=== PATIENT | male | born 1950 | race Caucasian/White ===

== ENCOUNTER → 2016-12-23 | Outpatient (CLI) | payer MEDICARE ==
[2014-05-22 16:00] VITALS: BP 121/79
[~2016-12-23] MED LIST: ASPI325T8 PO; CYCL10TA2 PO; GABA-587 PO; HYDR-971 PO; LOSA25TA4 PO; METF500T4 PO; METO25TA4 PO; MULT-208 PO; NITR0.4T22 SL; OMEP20CA5 PO; PRAV40TA2 PO
--- NOTE | 2016-12-23 12:24 | CARD ---
APPROVED REPORT EXAM: Two-dimensional and M-mode echocardiogram with Doppler and color Doppler. Other Information Quality : Fair INDICATION Cardiac Disease: CAD Chest Pain Murmur 2D DIMENSIONS RVDd2.8 (2.9-3.5cm)Left Atrium(2D)3.0 (1.6-4.0cm) IVSd0.9 (0.7-1.1cm)Aortic Root(2D)3.8 (2.0-3.7cm) LVDd4.3 (3.9-5.9cm)LVOT Diameter2.5 (1.8-2.4cm) PWd0.9 (0.7-1.1cm)LVDs3.0 (2.5-4.0cm) FS (%) 31.4 %SV50.8 ml LVEF(%)59.5 (>50%) Aortic Valve AoV Peak Cameron.142.1cm/sAoV VTI24.2cm AO Peak GR.8.1mmHgLVOT Peak Cameron.109.0cm/s AO Mean GR.4mmHgAVA (VMAX)3.87cm2 EVLIN (VTI)4.00cm2 Mitral Valve MV E Wvadjebe80.1cm/sMV DECEL [id number] MV A Kanefgya85.8cm/sE/A Ratio0.9 Tricuspid Valve TR P. Goewccpp620af/sRAP MEELBBUB6vxXs TR Peak Gr.69ybVxGIQI74gdJg Pulmonary Vein S1 Msboxuwf42.4cm/sD2 Iwgjzvfq66.4cm/s PVa wqbppeqx974qsmz LEFT VENTRICLE The left ventricle is normal size. There is normal left ventricular wall thickness. The left ventricu lar systolic function is normal and the ejection fraction is within normal range. The Ejection Fracti on is 55-60%. There is normal LV segmental wall motion. Transmitral Doppler flow pattern is Grade I-a bnormal relaxation pattern. RIGHT VENTRICLE The right ventricle is normal size. The right ventricular systolic function is normal. ATRIA The left atrium size is normal. The right atrium size is normal. The interatrial septum is intact wit h no evidence for an atrial septal defect or patent foramen ovale as noted on 2-D or Doppler imaging. AORTIC VALVE The aortic valve is normal in structure and function. Doppler and Color Flow revealed no significant aortic regurgitation. There is no significant aortic valvular stenosis. MITRAL VALVE The mitral valve is calcified but opens well. There is no evidence of mitral valve prolapse. There is no mitral valve stenosis. Doppler and Color-flow revealed trace mitral regurgitation. TRICUSPID VALVE The tricuspid valve is normal in structure and function. Doppler and Color Flow revealed trace tricus pid regurgitation. The PA pressure was estimated at 21 mmHg. There is no tricuspid valve stenosis. PULMONIC VALVE The pulmonary valve is normal in structure and function. Doppler and Color Flow revealed no pulmonic valvular regurgitation. There is no pulmonic valvular stenosis. GREAT VESSELS The aortic root is mildly enlarged at 3.8 cm. The ascending aorta is not well seen. The IVC is normal in size and collapses >50% with inspiration. PERICARDIAL EFFUSION There is no evidence of significant pericardial effusion. Critical Notification Critical Value: No <Conclusion> The left ventricle is normal size. The left ventricular systolic function is normal and the ejection fraction is within normal range. The Ejection Fraction is 55-60%. There is no significant aortic valvular stenosis. Doppler and Color Flow revealed no significant aortic regurgitation. Doppler and Color-flow revealed trace mitral regurgitation. Doppler and Color Flow revealed trace tricuspid regurgitation. The PA pressure was estimated at 21 mmHg. The aortic root is mildly enlarged at 3.8 cm.
--- NOTE | 2016-12-24 13:23 | RAD ---
APPROVED REPORT Test Type: Pharmacological Stress Nurse/Tech: EVERARDO Mabry Test Indications: CAD, CP Cardiac History: Hypertension, High cholesterol, Diabetes, see EMR Medications: See EMR Medical History: smoker currently, See EMR Resting ECG: SR Resting Heart Rate: 62 bpm Resting Blood Pressure: 142/87mmHg Pretest Chest Pain: No chest pain Nurse/Tech Notes S1,S2, Lungs clear uppers/diminished bases, denies SOA or CP at this time Consent: The procedure was explained to the patient in lay terms. Informed consent was witnessed. Jose eout was entered into [employer]. History and Stress Test performed by EVERARDO Mabry Pharm. Details Pharmacologic stress testing was performed using 0.4mg per 5ml of regadenoson given intravenously ove r 7-10 seconds. Stress Symptoms Slight SOA, subsided quickly. VSS. Denied CP POST EXERCISE Reason for Termination: Infusion complete Max HR: 111 bpm Max Blood Pressure: 136/82mmHg Blood Pressure response to exercise: Normal blood pressure response during stress. Heart Rate response to exercise: Normal response Chest Pain: No. Arrhythmia: No. ST Change: No. INTERPRETATION Stress EKG Conclusion: No acute changes were noted. Imaging Protocol IMAGE PROTOCOL: Rest Tc-99m/stress Tc-99m 2 days Rest: Stress: Viability: Radiopharm.Tc99m EqyukpltnGv36m Sestamibi Xufr76vHc 34mCi Duration 12min. 12min. Img Date 12/23/2016 12/24/2016 Inj-Img Wugi22ffo. 60min. STRESS DATA End Diast. Vol.90.0mlAv. Heart Rate74.0bpm End Syst. Vol.24.0mlCO Index BSA0.0L/min Myocardial Wiym748.0gEject. Gseekpjp26.0% Stress Rates Pk. Fill Rate2.89EDV/secLVtime Pk. Fill 105.85msec Pk. Empty Rate4.51ESV/secLVtime Pk. Emezv793.66msec 03/26 Pk. Fill1.95EDV/sec Stress Scores Regional WT0.00Summed WT0.00 Regional WM0.00Summed WM5.00 The rest and stress images show normal perfusion, normal contraction and thickening. LV Perf. Quant 17 Seg. SSS7.00 17 Seg. SRS11.00 17 Seg. SDS0.00 Stress Defect Extent (% LAD)0.00Rest Defect Extent (% LAD)6.30Rev. Defect Extent (% LAD)0.00 Stress Defect Extent (% LCX) 35.00Rest Defect Extent (% LCX)55.00Rev. Defect Extent (% LCX)0.00 Stress Defect Extent (% RCA)0.00Rest Defect Extent (% RCA)2.20Rev. Defect Extent (% RCA)0.00 Stress Defect Extent (% TIFFANI)8.00Rest Defect Extent (% TIFFANI)17.00Rev. Defect Extent (% TIFFANI)0.00 Other Information Quality:Average Risk Assessment: Low Risk Conclusion 1. No evidence of EKG changes with stress testing. 2. Normal perfusion at stress/rest. 3. Low risk study. 4. EF > 60%.
== END | disposition home or self-care (01) ==
LOC: ECHO 08:54
PROVIDERS: ATTEND Internal Medicine Cardiovascular Disease
DX: I25.10 Atherosclerotic heart disease of native coronary artery without angina pectoris (principal); I10 Essential (primary) hypertension; E11.9 Type 2 diabetes mellitus without complications; E78.00 Pure hypercholesterolemia, unspecified; R01.1 Cardiac murmur, unspecified; Z79.01 Long term (current) use of anticoagulants
CPT/HCPCS: 78452; 93306; 96374; 96375; A9500

== ENCOUNTER → 2016-12-24 | Outpatient (CLI) | payer MEDICARE ==
[2014-05-22 16:00] VITALS: BP 121/79
[~2016-12-24] MED LIST changes: +RANO500T2 PO; +REGADENOSON 0.4 MG/5 ML DISP.SYRIN. IV ONE
== END | disposition home or self-care (01) ==
LOC: NM 13:08
PROVIDERS: ATTEND Internal Medicine Cardiovascular Disease
DX: R07.9 Chest pain, unspecified (principal); I10 Essential (primary) hypertension; E78.00 Pure hypercholesterolemia, unspecified; E11.9 Type 2 diabetes mellitus without complications; I25.10 Atherosclerotic heart disease of native coronary artery without angina pectoris; Z90.49 Acquired absence of other specified parts of digestive tract
CPT/HCPCS: 93017; 96376; J2785

== ENCOUNTER 2017-01-03 06:19 | Outpatient (CLI) | payer MEDICARE ==
[2017-01-03] VITALS (10 sets, daily range): BP systolic 90–129; BP diastolic 60–80
[~2017-01-03] VITALS: Ht 172.7 cm; Wt 120.7 kg
[~2017-01-03 06:19] MED LIST changes: -RANO500T2 PO; -REGADENOSON 0.4 MG/5 ML DISP.SYRIN. IV ONE
[2017-01-03] MEDS ORDERED: RANO500T2 PO (06:52)
[2017-01-03 06:54] LABS: HEMATOCRIT 50.8 % (39.0-53.0); HEMOGLOBIN 17.1 g/dL (13.0-17.5); RED BLOOD COUNT 5.49 x10^6/uL (4.30-5.70); RED CELL DISTRIBUTION WIDTH 14.1 % (11.5-14.5); WHITE BLOOD COUNT 11.9 x10^3/uL (4.0-11.0)
[2017-01-03] MEDS ORDERED: IODIXANOL 320 MG/ML 100 ML VIAL. ONE (07:09)
[2017-01-03] MEDS ORDERED: HEPARIN for ARTERIAL LINE 1,500 ML ONE (07:10)
[2017-01-03] MEDS ORDERED: LIDOCAINE 2% 20 ML VIAL. ONE (07:10)
[2017-01-03 07:14] LABS: CALCIUM 9.3 mg/dL (8.5-10.1); CREATININE 1.1 mg/dL (0.7-1.3); GFR 66.6; POTASSIUM 4.4 mmol/L (3.5-5.1)
[2017-01-03] MEDS ORDERED: fentaNYL PF VIAL 100 MCG/2 ML VIAL IV ONE ×2 (08:00→09:45)
[2017-01-03] MEDS ORDERED: IODIXANOL 320 MG/ML 100 ML VIAL. IART ONE (08:00)
[2017-01-03] MEDS ORDERED: MIDAZOLAM HCL/PF 2 MG/2 ML VIAL. IV ONE ×2 (08:00→09:45)
[2017-01-03] MEDS ORDERED: LIDOCAINE 2% 20 ML VIAL. IJ ONE (08:00)
[2017-01-03] MEDS ORDERED: HEPARIN for IV BOLUS 10,000 UNIT/10 ML VIAL. ONE (08:05)
[2017-01-03] MEDS ORDERED: MIDAZOLAM HCL/PF 2 MG/2 ML VIAL. ONE ×2 (08:05→08:41)
[2017-01-03] MEDS ORDERED: fentaNYL PF VIAL 100 MCG/2 ML VIAL ONE (08:05)
[2017-01-03] MEDS ORDERED: IV NORMAL SALINE 1000ML BAG 1,000 ML IV SCH (09:41)
[2017-01-03] MEDS ORDERED: BISACODYL 10 MG SUPP.RECT. PR PRN (09:45)
[2017-01-03] MEDS ORDERED: 0.9 % SODIUM CHLORIDE 10 ML DISP.SYRIN. IV PRN (09:45)
[2017-01-03] MEDS ORDERED: MAGNESIUM HYDROXIDE 2,400 MG/30 ML ORAL.SUSP. PO PRN (09:45)
[2017-01-03] MEDS ORDERED: oxyCODONE/APAP 5/325 1 TAB TABLET PO PRN ×2 (09:45)
[2017-01-03] MEDS ORDERED: ATROPINE 0.5 MG/5 ML DISP.SYRIN. IV PRN (09:45)
[2017-01-03] MEDS ORDERED: fentaNYL PF VIAL 100 MCG/2 ML VIAL IV PRN (09:45)
[2017-01-03] MEDS ORDERED: LACTULOSE 20 GM/30 ML SOLUTION. PO PRN (09:45)
[2017-01-03] MEDS ORDERED: NITROGLYCERIN SUBLINGUAL 0.4 MG BOTTLE OF 25. SL PRN (09:45)
[2017-01-03] MEDS ORDERED: ACETAMINOPHEN 325 MG TABLET. PO PRN (09:45)
--- NOTE | 2017-01-07 16:31 | CARD ---
APPROVED REPORT Procedures Abdominal aortic injection with iliofemoral runoff. Bilateral lower extremity examination The patient is a 66-year-old female who reports increasing episodes of lower extremity pain with exer tion. Noninvasive studies suggested moderate to severe lower extremity arterial disease. Angiogram wa s recommended. Risks and benefits discussed. The patient agreed to the procedure. After informed consent was obtained the patient was brought to the heart catheterization lab. The are a of the right femoral artery was prepared usual manner with Betadine, sterile draping and local anes thetic. An 18-gauge needle was used to enter the rightcommon femoral artery, a wire placed and a baxter th placed over the wire. A pigtail catheter was placed just superior to the takeoff of the renal art eries. An injection with runoff was performed. A crossover catheter was then used to engage the left iliac artery and an ejection was performed. This catheter was then removed and a additional injection was performed through the sheath. The sheath then was removed and the puncture site sealed with an A ngio-Seal product. The patient was moved to the holding area in stable condition. Findings. The abdominal aorta showed no evidence of significant disease. Bilateral renal artery showed no significant disease. The left iliac had a 20% lesion and an area of angulation. The right iliac iliac artery showed no lesions. The left femoral arterial system showed no lesions. Distally the vessels had no lesions and had leonid l three-vessel distal run off. The right superficial femoral artery had a 20% lesion. Distally the right system had no lesions and had normal three-vessel runoff. <Conclusion> Mild peripheral arterial disease with 20% lesions in the left iliac and right superficial femoral art eries.
== END 2017-01-03 12:45 | disposition home or self-care (01) ==
LOC: CCL 06:19
PROVIDERS: ATTEND Internal Medicine Cardiovascular Disease
DX: I70.212 Atherosclerosis of native arteries of extremities with intermittent claudication, left leg (principal); E78.00 Pure hypercholesterolemia, unspecified; I10 Essential (primary) hypertension; E66.9 Obesity, unspecified; Z68.41 Body mass index [BMI] 40.0-44.9, adult; M19.91 Primary osteoarthritis, unspecified site; E11.9 Type 2 diabetes mellitus without complications; F17.200 Nicotine dependence, unspecified, uncomplicated; Z72.0 Tobacco use; Z87.39 Personal history of other diseases of the musculoskeletal system and connective tissue; Z90.49 Acquired absence of other specified parts of digestive tract; Z86.39 Personal history of other endocrine, nutritional and metabolic disease; Z72.89 Other problems related to lifestyle; Z91.048 Other nonmedicinal substance allergy status
CPT/HCPCS: 36415; 75630; 80048; 85027; 85610; C1769; C1892; G0269; J1644; J2250; J3010; Q9967; 99152; 99153; J2001

== ENCOUNTER → 2017-02-10 | Outpatient (CLI) | payer MEDICARE ==
[2017-01-11 19:30] VITALS: BP 138/73
[~2017-02-10] MED LIST changes: +RANO500T2 PO
--- NOTE | 2017-02-10 10:23 | RAD ---
APPROVED REPORT Patient Location : OUT-PATIENT Indications Lower Extremity Pain : Bilateral Past History Diabetes Medications Patient cannot remember name of meds but believes he is on a blood thinner Findings Rt and Lt GSV and SSV were evaluated for reflux with valsalva and proximal compression. No reflux wa s seen. No varicosities were seen. Normal size vessels. The right great saphenous vein measures 6.8 mm. The left great saphenous vein measures 5.7 mm Critical Notification Critical Value: No <Conclusion> Negative for reflux in the bilateral greater and small saphenous veins
== END | disposition home or self-care (01) ==
LOC: US 08:34
PROVIDERS: ATTEND Internal Medicine Cardiovascular Disease
DX: I73.9 Peripheral vascular disease, unspecified (principal); M79.604 Pain in right leg; M79.605 Pain in left leg; E11.9 Type 2 diabetes mellitus without complications
CPT/HCPCS: 93970

== ENCOUNTER 2017-08-17 02:21 | Emergency (ER) | payer MEDICARE | END 2017-08-17 04:21 | disposition home or self-care (01) | LOC: ER 02:21 | DX: S80.01XA Contusion of right knee, initial encounter (principal); E78.00 Pure hypercholesterolemia, unspecified; I11.9 Hypertensive heart disease without heart failure; I25.2 Old myocardial infarction; E11.9 Type 2 diabetes mellitus without complications; S91.209A Unspecified open wound of unspecified toe(s) with damage to nail, initial encounter; W06.XXXA Fall from bed, initial encounter; Y93.89 Activity, other specified; Y99.8 Other external cause status; Y92.89 Other specified places as the place of occurrence of the external cause | CPT/HCPCS: 73562; 99284 ==

== ENCOUNTER 2017-12-14 10:40 | Emergency (ER) | payer MEDICARE ==
[~2017-12-14] VITALS: Ht 172.7 cm; Wt 122.9 kg
[~2017-12-14 10:40] MED LIST changes: +ACET-704 PO; +ASPI-630 PO; +CEPH-264 PO; +CILO100T PO; -LOSA25TA4 PO; +LOSA25TA5 PO; +METF500T16 PO; -METF500T4 PO; +OMEG1CAP27 PO; +PREG150C PO; +VENL37.56 PO
[2017-12-14 10:56] VITALS: BP 131/73
[2017-12-14] MEDS ORDERED: NAPROXEN 250 MG TABLET PO STA (10:56)
[2017-12-14] MEDS ORDERED: CYCLOBENZAPRINE 10 MG TABLET. PO ONE (11:00)
[2017-12-14] MEDS ORDERED: HYDROcodone/APAP 5/325MG 1 TAB TABLET PO ONE (11:00)
--- NOTE | 2017-12-14 11:51 | RAD ---
Lumbar spine 3 views. HISTORY: Low back pain radiating down legs 3 views were taken of the lumbar spine. Spine is in normal alignment. Disc spaces are normal in height. A fracture is not identified. IMPRESSION: 1. Negative lumbar spine. Electronically signed by: Avelino Patino MD (12/14/2017 11:48 AM) [facility]
--- NOTE | 2017-12-14 11:53 | RAD ---
Left hip 2 views with one view pelvis. HISTORY: Left hip pain, lower back pain radiating down legs AP and lateral views were taken of the left hip. There is no fracture or osseous abnormality. Single view was taken of the pelvis. There is no pelvic fracture or acute osseous abnormality. IMPRESSION: 1. Negative pelvis. 2. Negative left hip. Electronically signed by: Avelino Patino MD (12/14/2017 11:49 AM) [facility]
[2017-12-14] MEDS ORDERED: HYDR-971 PO (12:28)
[2017-12-14] MEDS ORDERED: CYCL10TA2 PO (12:28)
[2017-12-14] MEDS ORDERED: DICL100G18 TP (12:28)
--- NOTE | 2017-12-14 12:29 | PHYS DOC ---
Past Medical History Past Medical History: Diabetes-Type II, High Cholesterol, Heart Disease, Hypertension Additional Past Medical Histor: PA 8 YEARS AGO. FOLLWED WITH MCSWEYN, NEUROPATHY Past Surgical History: Appendectomy, Cholecystectomy, Other Additional Past Surgical Histo: hernia Alcohol Use: Sober Drug Use: None Adult General Chief Complaint Chief Complaint: HIP PAIN HPI HPI Patient is a 67 year old male with history of smoking, diabetes, hypertension, high cholesterol, who presents today complaining of a sharp 7 out of 10 pain that begins from the left low back into the left hip and radiates to the left lower extremity that began 3 days ago when he was sitting on his couch watching TV. Patient states his pain is worse on weight bearing. Patient states he has tried dvhg-wee-quitshc pain relievers with no relief. Patient denies any trauma. Denies any loss of bowel bladder function. Patient denies any generalized weakness. PCP Dr. Garza Review of Systems Review of Systems Constitutional: Denies fever or chills [] Eyes: Denies change in visual acuity, redness, or eye pain [] HENT: Denies nasal congestion or sore throat [] Respiratory: Denies cough or shortness of breath [] Cardiovascular: No additional information not addressed in HPI [] GI: Denies abdominal pain, nausea, vomiting, bloody stools or diarrhea [] : Denies dysuria or hematuria [] Musculoskeletal: Reports left low back pain, left lateral hip pain, radiating to the left lower extremity. Integument: Denies rash or skin lesions [] Neurologic: Denies headache, focal weakness or sensory changes [] All other systems were reviewed and found to be within normal limits, except as documented in this note. Current Medications Current Medications Current Medications Medications (Trade) Dose Ordered Sig/Alen Start Time Stop Time Status Last Admin Dose Admin Acetaminophen/ Hydrocodone Bitart (Lortab 5/325) 1 tab 1X ONCE 12/14/17 11:00 12/14/17 11:01 DC 12/14/17 11:40 1 TAB Cyclobenzaprine HCl (Flexeril) 10 mg 1X ONCE 12/14/17 11:00 12/14/17 11:01 DC 12/14/17 11:40 10 MG Naproxen (Naprosyn) 250 mg 1X STAT 12/14/17 10:56 12/14/17 10:59 DC 12/14/17 11:40 250 MG Allergies Allergies Allergies Coded Allergies Type Severity Reaction Last Updated Verified venom-honey bee Allergy Intermediate Swelling 12/24/13 Yes Physical Exam Physical Exam Constitutional: Well developed, well nourished, no acute distress, non-toxic appearance. [] HENT: Normocephalic, atraumatic, bilateral external ears normal, oropharynx moist, no oral exudates, nose normal. [] Eyes: PERRLA, EOMI, conjunctiva normal, no discharge. [] Neck: Normal range of motion, no tenderness, supple, no stridor. [] Cardiovascular:Heart rate regular rhythm, no murmur [] Lungs & Thorax: Bilateral breath sounds clear to auscultation [] Abdomen: Rounded abdomen. Bowel sounds normal, soft, no tenderness, no masses, no pulsatile masses. [] Skin: Warm, dry, no erythema, no rash. [] Back: Mild tenderness on palpation of the left SI joint, no midline lumbar spine tenderness, no CVA tenderness. Positive left leg straight raises. Extremities: Slight tenderness on palpation of the left lateral hip, no cyanosis , no clubbing, ROM intact, no edema. [] Neurologic: Alert and oriented X 3, normal motor function, normal sensory function, no focal deficits noted. [] Psychologic: Affect normal, judgement normal, mood normal. [] Current Patient Data Vital Signs Vital Signs Date Time Temp Pulse Resp B/P (MAP) Pulse Ox O2 Delivery O2 Flow Rate FiO2 12/14/17 11:40 16 98 12/14/17 10:56 98.3 79 131/73 (92) Room Air 98.3 EKG EKG [] Radiology/Procedures Radiology/Procedures []PROCEDURE: LUMBAR SPINE 2-3V Lumbar spine 3 views. HISTORY: Low back pain radiating down legs 3 views were taken of the lumbar spine. Spine is in normal alignment. Disc spaces are normal in height. A fracture is not identified. IMPRESSION: 1. Negative lumbar spine. Electronically signed by: Avelino Patino MD (12/14/2017 11:48 AM) [facility] DICTATED and SIGNED BY: AVELINO PATINO MD DATE: 12/14/17 1144 PROCEDURE: HIP LEFT 2V WITH PELVIS Left hip 2 views with one view pelvis. HISTORY: Left hip pain, lower back pain radiating down legs AP and lateral views were taken of the left hip. There is no fracture or osseous abnormality. Single view was taken of the pelvis. There is no pelvic fracture or acute osseous abnormality. IMPRESSION: 1. Negative pelvis. 2. Negative left hip. Electronically signed by: Avelino Patino MD (12/14/2017 11:49 AM) [facility] DICTATED and SIGNED BY: AVELINO PATINO MD DATE: 12/14/17 1148 Course & Med Decision Making Course & Med Decision Making Pertinent Labs and Imaging studies reviewed. (See chart for details) This is a 67-year-old male patient presented to the ED today with left low back pain radiating to the left hip into the left lower extremity, no known injury. Lumbar spine x-rays as well as left hip x-rays with pelvic interpreted by radiologist are negative for any acute findings. Patient has history of smoking , he was encouraged to consider smoking cessation. He has no cauda equina syndrome symptoms. Does not have weakness. Will be discharged with pain medicine as well as muscle relaxers. He follows up with Dr. Garza. Instructed patient to call the PCP tomorrow and set up a follow-up appointment. Also given a pain clinic doctor for follow-up. jonathan saini was working in the ED at the time of this visit. i was available for consulation at all times in the ED, i was not directly involved in the care of this patient. Dragon Disclaimer Dragon Disclaimer This electronic medical record was generated, in whole or in part, using a voice recognition dictation system. Departure Departure Impression: Primary Impression: Sciatica of left side Additional Impressions: Pain in left hip Smoking addiction Disposition: 01 HOME, SELF-CARE Condition: STABLE Referrals: THEODORE MERINO MD (PCP) follow up in the course of this week GUSTAVO KAISER MD call his office and follow up in the course of this week Patient Instructions: Hip Pain, Sciatica, Jied-fb-Rogg, Smoking Cessation, Smoking Cessation, Tips For Success Additional Instructions: You were evaluated in the emergency room for pain. Take the pain medications prescribed as needed. Contact your primary care doctor tomorrow and set up a follow-up appointment as an outpatient. Your x-rays of the lumbar spine and left hip with pelvic were negative for any acute findings. Apply ice to the affected areas. You can also apply heat to the affected area. Please consider smoking cessation. Scripts Diclofenac Sodium (VOLTAREN) 100 Gm Gel..gram. 1 GM TP QID, #100 GM 2 Refills Prov: BEL MULLEN APRN 12/14/17 Hydrocodone/Apap 5-325 (NORCO 5-325 TABLET) 1 Each Tablet 1 TAB PO Q4-6HRS PRN for PAIN, #12 TAB Prov: BEL MULLEN APRN 12/14/17 Cyclobenzaprine Hcl (CYCLOBENZAPRINE HCL) 10 Mg Tablet 1 TAB PO TID, #30 TAB Prov: BEL MULLEN APRN 12/14/17 Problem Qualifiers BEL MULLEN APRN Dec 14, 2017 12:29 SHARMAINE BABIN MD Dec 14, 2017 16:44
== END 2017-12-14 12:46 | disposition home or self-care (01) ==
LOC: ER 10:40
DX: M54.42 Lumbago with sciatica, left side (principal); M25.552 Pain in left hip; F17.200 Nicotine dependence, unspecified, uncomplicated; E78.00 Pure hypercholesterolemia, unspecified; I11.9 Hypertensive heart disease without heart failure; I25.2 Old myocardial infarction; E11.40 Type 2 diabetes mellitus with diabetic neuropathy, unspecified; Z91.030 Bee allergy status
CPT/HCPCS: 72100; 73502; 99284

== ENCOUNTER → 2017-12-31 | Day surgery (SDC) | payer MEDICARE ==
[~2017-12-31] MED LIST changes: +DICL100G18 TP; +GLIP2.5T4 PO; +IV RINGERS,LACTATED 1000ML 1,000 ML IV SCH; +LIDOCAINE 1% PF 2 ML VIAL. ID PRN; +MIDAZOLAM HCL/PF 2 MG/2 ML VIAL. IV PRN; +PANT20TA2 PO; +PROPOFOL 40 ML IV ONE; +fentaNYL PF VIAL 100 MCG/2 ML VIAL IV PRN
[2017-12-31 08:45] VITALS: BP 116/76
--- NOTE | 2018-01-01 16:09 | PATHOLOGY ---
[facility] Accession Number: [id number] . 01 Material submitted: . SIGMOID POLYPECTOMY . 01 Clinical history: . Screening, Hx polyps . 02 Diagnosis: Colon biopsies, sigmoid polypectomy: - Tubular adenoma. [facility]/01/01/2018 . 02 Comment: There is no high-grade dysplasia or evidence of malignancy. (JPM:[facility] 01/01/2018) . 02 Electronically signed: . Carlito Velásquez MD, Pathologist NPI- [id number] . 01 Gross description: . Received in formalin labeled "Isma, Deon, sigmoid polyp," and additionally labeled on the requisition as "polypectomy," are multiple segments of nichols soft tissue admixed with vegetative material measuring 1.6 x 0.6 x 0.3 cm in aggregate dimensions. The specimen is filtered and entirely submitted in cassette A1. (TSD; 12/31/2017) TOB/TOB . 02 Pathologist provided ICD-10: D12.5 . 02 CPT . 655413 Specimen Comment: A courtesy copy of this report has been sent to Specimen Comment: [phone], . Specimen Comment: Report sent to / DR MERINO Specimen Comment: A duplicate report has been generated due to demographic updates. Performed at: 01 [facility] [address], [place] [id number] MD Misael Molina MD Phone: [phone] Performed at: 02 [facility] [address] [place], [place] [id number] MD Carlito Velásquez MD Phone: [phone]
== END | disposition home or self-care (01) ==
LOC: ENDOS 07:07
PROVIDERS: ATTEND Internal Medicine Gastroenterology
DX: Z12.11 Encounter for screening for malignant neoplasm of colon (principal); D12.5 Benign neoplasm of sigmoid colon; K64.0 First degree hemorrhoids; M19.90 Unspecified osteoarthritis, unspecified site; E11.9 Type 2 diabetes mellitus without complications; K21.9 Gastro-esophageal reflux disease without esophagitis; E78.00 Pure hypercholesterolemia, unspecified; E03.9 Hypothyroidism, unspecified; I11.9 Hypertensive heart disease without heart failure; Z83.3 Family history of diabetes mellitus; Z80.0 Family history of malignant neoplasm of digestive organs; Z79.899 Other long term (current) drug therapy; Z98.52 Vasectomy status; Z90.49 Acquired absence of other specified parts of digestive tract; Z98.890 Other specified postprocedural states; Z91.030 Bee allergy status; Z79.84 Long term (current) use of oral hypoglycemic drugs; Z82.49 Family history of ischemic heart disease and other diseases of the circulatory system
CPT/HCPCS: 45385; 88305; J2704; 45380

== ENCOUNTER → 2018-01-07 | Outpatient (CLI) | payer MEDICARE ==
[2017-12-31 08:45] VITALS: BP 116/76
[~2018-01-07] MED LIST changes: +BARIUM SULFATE 96% 397 GM ENEMA. PR ONE; -IV RINGERS,LACTATED 1000ML 1,000 ML IV SCH; -LIDOCAINE 1% PF 2 ML VIAL. ID PRN; -MIDAZOLAM HCL/PF 2 MG/2 ML VIAL. IV PRN; -PROPOFOL 40 ML IV ONE; -fentaNYL PF VIAL 100 MCG/2 ML VIAL IV PRN
--- NOTE | 2018-01-07 09:44 | RAD ---
Clinical indications: Screening study. Incomplete colonoscopy one week ago. Procedure: A preliminary KUB was performed. Subsequently, a barium enema catheter was inserted into the rectum and the balloon insufflated. Thin liquid barium was infused into the colon up to the cecum under fluoroscopic observation. Multiple fluoroscopic spot views were performed with manual compression of the colon. Multiple overhead computerized radiographs were performed as well. The patient tolerated the procedure well without complication. Total fluoroscopic time: 2.5 minutes. Total fluoroscopic spot images: 32. Findings: No obstructive bowel pattern is seen on the preliminary film. No filling defects are seen. No apple core lesion is seen. Mucosal pattern is unremarkable. No stricture is seen. No diverticula are seen. No extravasation of contrast is seen. Retrograde opacification of the terminal ileum is seen. Impression: Unremarkable barium enema examination. Electronically signed by: Romero Lau MD (01/07/2018 9:40 AM) [facility]
== END | disposition home or self-care (01) ==
LOC: RAD 07:43
PROVIDERS: ATTEND Internal Medicine Gastroenterology
DX: Z12.11 Encounter for screening for malignant neoplasm of colon (principal); Z86.010 Personal history of colon polyps
CPT/HCPCS: 74270

== ENCOUNTER → 2018-01-21 | Outpatient (CLI) | payer MEDICARE ==
[2017-12-31 08:45] VITALS: BP 116/76
[~2018-01-21] MED LIST changes: -BARIUM SULFATE 96% 397 GM ENEMA. PR ONE
--- NOTE | 2018-01-21 11:28 | KCIC ---
MRI Lumbar Spine without contrast History: Low back pain, left radiculopathy, left leg pain for 3 weeks, numbness Technique: Multiplanar, multi sequential noncontrast MR imaging was performed of the lumbar spine. Contrast: None Comparison: January 20, 2013 Findings: Lumbar vertebral body stature is maintained. There is again minimal grade 1 anterior spondylolisthesis L2-3, now negligible anterior spondylolisthesis L4-5. There is mild degenerative disc disease L2-3 through L4-5, slightly greater at L2-3 in the interval. There is again large hemangioma of L3 vertebral body eccentric to the left. Conus terminates at T12-L1. L1-L2: Spinal canal and neural foramina are adequate. L2-L3: There is again htca-gn-mgtsakwf facet degenerative change and mild buckling of the ligament flavum. There is mild partial uncovering of the posterior aspect of the disc due to spondylolisthesis also minimal disc osteophyte complex. There is left posterior annular tear. Spinal canal is overall adequate. There is mild narrowing of the inferior left neural foramen, disc osteophyte complex near the undersurface exiting left L2 nerve root in the distal neural foramen and proximal left parietal region as seen previously without significant displacement. Right neural foramen is adequate. L3-L4: There is mild buckling of the ligamentum flavum. There is negligible disc osteophyte complex and bulge. Spinal canal is adequate. There is somewhat increased tkrb-af-bbxbpxhv narrowing of the inferior distal left neural foramen, disc osteophyte complex and protrusion in the distal left neural foramen and proximal extraforaminal region with contact of the undersurface exiting left L3 nerve root in the extraforaminal region greater than previously. Protrusion is estimated about 5 mm AP by 7 mm CC by about 7 mm transverse. There is minimal narrowing of the inferior distal right neural foramen by minimal disc osteophyte complex. L4-L5: Spinal canal is adequate. There is minimal facet degenerative change and buckling of the ligamentum flavum. Neural foramina are overall adequate. L5-S1: Spinal canal and neural foramina are adequate. Impression: 1. Compared with the 2013 exam, there is more prominent protrusion in the inferior distal left L3-4 neural foramen and proximal extraforaminal region with contact of the undersurface exiting left L3 nerve root in the distal neural foramen and proximal extraforaminal region. There is again mild narrowing of the inferior left L2-3 neural foramen by disc osteophyte complex. 2. There is minimal grade 1 anterior spondylolisthesis at L2-3, negligible anterior spondylolisthesis at L4-5. There is multilevel facet degenerative change. 3. There is mild degenerative disc disease L2-3 through L4-5. 4. There is no new significant lumbar spinal stenosis. Electronically signed by: Alfred Rueda MD (01/21/2018 11:25 AM) [facility]
== END | disposition home or self-care (01) ==
LOC: KCIC MRI 09:51
PROVIDERS: ATTEND Family Medicine
DX: M51.36 Other intervertebral disc degeneration, lumbar region (principal); M43.16 Spondylolisthesis, lumbar region; M25.78 Osteophyte, vertebrae; M48.061 Spinal stenosis, lumbar region without neurogenic claudication; M51.26 Other intervertebral disc displacement, lumbar region; D18.09 Hemangioma of other sites
CPT/HCPCS: 72148

== ENCOUNTER → 2018-03-23 | Outpatient (CLI) | payer MEDICARE ==
[2017-12-31 08:45] VITALS: BP 116/76
[~2018-03-23] MED LIST changes: +DOCU-109 PO; -GABA-587 PO; +GABA-689 PO; +HYDR-2765 PO; +HYDR-3164 PO; -HYDR-971 PO; +LEVO75TA5 PO; -LOSA25TA5 PO; +LOSA25TA54 PO; +METH-38 PO
[2018-03-23 12:20] LABS: BASO # 0.1 x10^3/uL (0.0-0.2); BASO % 1 % (0-3); EOS # 0.3 x10^3/uL (0.0-0.7); EOS % 3 % (0-3); HEMATOCRIT 46.3 % (39.0-53.0); LYMPH # 4.9 x10^3/uL (1.0-4.8); LYMPH % 47 % (24-48); MEAN CORPUSCULAR HEMOGLOBIN 32 pg (25-35); MEAN CORPUSCULAR HGB CONC 35 g/dL (31-37); MEAN CORPUSCULAR VOLUME 93 fL (79-100); MONO # 0.9 x10^3/uL (0.0-1.1); MONO % 9 % (0-9); NEUT # 4.3 x10^3uL (1.8-7.7); NEUT % 41 % (31-73); PLATELET COUNT 278 x10^3/uL (140-400); RED CELL DISTRIBUTION WIDTH 13.8 % (11.5-14.5); WHITE BLOOD COUNT 10.5 x10^3/uL (4.0-11.0)
[2018-03-23 12:37] LABS: ALBUMIN 3.6 g/dL (3.4-5.0); ALBUMIN/GLOBULIN RATIO 1.1 (1.0-1.7); CALCIUM 9.4 mg/dL (8.5-10.1); CREATININE 0.9 mg/dL (0.7-1.3); GFR 83.7; POTASSIUM 4.1 mmol/L (3.5-5.1); TOTAL BILIRUBIN 0.3 mg/dL (0.2-1.0); TOTAL PROTEIN 6.9 g/dL (6.4-8.2)
[2018-03-23 23:10] LABS: HEMOGLOBIN A1C 7.1 % (4.8-5.6)
== END | disposition home or self-care (01) ==
LOC: SURGPAT 11:27
PROVIDERS: ATTEND Neurological Surgery
DX: Z01.818 Encounter for other preprocedural examination (principal); M51.16 Intervertebral disc disorders with radiculopathy, lumbar region; E11.9 Type 2 diabetes mellitus without complications
CPT/HCPCS: 36415; 80053; 83036; 85025; 87641

== ENCOUNTER → 2018-03-30 | Day surgery (SDC) | payer MEDICARE ==
--- NOTE | 2018-03-27 11:19 | PREOP HP ---
DATE OF SERVICE: 03/30/2018. DATE OF SURGERY: 03/30/2018. HISTORY OF PRESENT ILLNESS: The patient is a pleasant 67-year-old who is having difficulty with low back pain on the left side and pain which radiates into his left buttock and then into the left anterior thigh and left hip. He feels weakness in his left leg. If he walks any distance, he feels as though his left leg may give out. Standing markedly increases pain. He has reasonable relief with sitting. He said he has not been able to stand long enough to make a cup of coffee, but must sit down because of the development of severe left anterior thigh pain. He notes numbness in the left leg below the knee anteriorly. There is no problem on the right side. The problem started about 2 months ago. PAST MEDICAL HISTORY: Arthritis, heart attack or failure, hypertension, thyroid disease, hernia, diabetes. PAST SURGICAL HISTORY: Multiple hernia surgeries in 1979 and 2014, skin graft x 2 in 2014. FAMILY HISTORY: Cancer, diabetes, hypertension, heart problem/disease. SOCIAL HISTORY: Retired. . Rarely exercises. Denies substance abuse. Smokes 1 pack per day and has for 40 years. Denies alcohol consumption. Drinks coffee and soda daily. ALLERGIES: No known drug allergies. CURRENT MEDICATIONS: Levothyroxine, glipizide, metoprolol, losartan, pantoprazole, metformin, pravastatin, [place]. REVIEW OF SYSTEMS: A 12-point review of systems was obtained and is noncontributory except for that mentioned above. PHYSICAL EXAMINATION: NEUROSURGERY EXAMINATION: GENERAL APPEARANCE: Alert, pleasant, no acute distress. HEAD: Normocephalic and atraumatic. SKIN: Warm and dry. MUSCULOSKELETAL: Lumbar paraspinal muscle bulk is normal, restricted range of motion of lumbar spine, [id number] tenderness of lower lumbar spine with palpation, normal range of motion of the lower extremities bilaterally. EXTREMITIES: No clubbing, cyanosis or edema. NEUROLOGIC: Alert and oriented x 3, normal recent and remote memory. Strength 5/5 in bilateral lower extremities except for 4+/5, below left quadriceps. Sensory was intact to light touch in the bilateral lower extremities except for decreased sensation over the left knee and anterior leg. Reflexes were trace and symmetric in the lower extremities bilaterally. Negative straight leg raising bilaterally, positive femoral stretch test on the left. Antalgic gait. IMAGING: I reviewed a lumbar MRI scan from 01/21/2018, on that study at L3-L4, there is a foraminal disc herniation which does contact the left L3 nerve root. ASSESSMENT: Intervertebral disc disorders with radiculopathy, lumbar region. PLAN: I believe the primary problem is a foraminal disc herniation along with compression of the left L3 root and left lumbar radiculopathy. He has had chiropractic treatment without benefit. My recommendation is that he undergo lumbar microsurgery. His pain is severe, and he is unable to ambulate, but short distances. The problem has been present for 2 months and has not improved despite rest. I did outline the treatment options, which include epidural steroid injections and physical therapy, but he is not interested in proceeding with that. He would like to go ahead with the surgery. We will make the arrangements. GERARDO BRONSON MD DR: JESUS/joe JOB#: [id number] / [id number] ANNAMARIE
[~2018-03-30] VITALS: Ht 172.7 cm; Wt 126.1 kg
[~2018-03-30] MED LIST changes: +BACITRACIN 50,000 UNIT in IV NORMAL SALINE 1000ML BAG 1,000 ML IRR ONE; +BUPIVAC MPF-EPI 0.5%-1:200000 30 ML VIAL. ONE; +DESFLURANE > 120 MINUTES IH ONE; +DEXAMETHASONE SOD PHOS 20 MG/5 ML VIAL. ONE; +GELATIN SPONGE SIZE 100. ONE; +GLYCOPYRROLATE 1 MG/5 ML VIAL. ONE; +HYDROcodone/APAP 7.5/325MG 1 TAB TABLET PO ONE; +HYDROmorphone 2 MG/ML VIAL IV PRN; +KETOROLAC 60 MG/2 ML INJ FOR OR. ONE; +LIDOCAINE 1% PF 2 ML VIAL. ID PRN; +LIDOCAINE 2% PF Vial for OR 5 ML VIAL. ONE; +MIDAZOLAM HCL/PF 2 MG/2 ML VIAL. ONE; +MORPHINE SULFATE 4 MG/ML VIAL. IV PRN; +NEOSTIGMINE 10 MG/10 ML VIAL. ONE; +ONDANSETRON PF 4 MG/2 ML VIAL. ONE; +PHENYLEPHRINE 10 MG/ML VIAL. ONE; +PROCHLORPERAZINE 10 MG/2 ML VIAL. IV PRN; +PROPOFOL 20 ML IV ONE; +PROPOFOL 50 ML IV ONE; +REMIFENTANIL 1 MG VIAL. IV ONE; +REMIFENTANIL 2 MG VIAL. IV ONE; +ROCURONIUM 50 MG/5 ML VIAL. ONE; +THROMBIN TOPICAL 20,000 UNIT SPRAY.SYRN KIT TP ONE; +ceFAZolin SODIUM 3 GM in IV DEXTROSE 5% 100ML 100 ML IV PRN; +fentaNYL PF VIAL 100 MCG/2 ML VIAL IV PRN; +fentaNYL PF VIAL 100 MCG/2 ML VIAL ONE; +oxyCODONE/APAP 5/325 1 TAB TABLET PO ONE
[2018-03-30] MEDS: IV RINGERS,LACTATED 1000ML 1,000 ML IV SCH ×2 (07:50→12:30)
--- NOTE | 2018-03-30 10:36 | DISCH ---
DISCHARGE INSTRUCTIONS Condition on Discharge Condition on Discharge: Stable Activity After Discharge Activity Instructions for Disc: Activity as tolerated, Avoid exertion Other activity instructions: no driving for a week Bathing Instructions: Shower-keep dressing dry Lifting Instructions after Dis: No heavy lifting, No pulling or pushing, Do not lift >10 pounds Exercise Instruction after Dis: Progress as tolerated Driving Instructions after Dis: Do not drive Weight Bearing Status after Di: No restrictions Diet after Discharge Diet after Discharge: Cardiac Wound Incision Care Wound/Incision Care: Ice to area for comfort, Keep wound/cast CDI Other wound/incision instructi: may remove dressing in 48 hours if dry then may shower, no soaking Contacting the after DC Call your doctor for: Concerns you may have Follow-Up Follow up with: Dr. Bronson's nurse in 2 weeks [phone] GERARDO BRONSON MD Mar 30, 2018 10:35
--- NOTE | 2018-03-30 11:46 | OP ---
DATE OF SURGERY: 03/30/2018 PREOPERATIVE DIAGNOSIS: Foraminal disc herniation with severe lumbar radiculopathy, left L3-L4. POSTOPERATIVE DIAGNOSIS: Foraminal disc herniation with severe lumbar radiculopathy, left L3-L4. OPERATION PERFORMED: Transforaminal microdiscectomy L3-L4 left, removal of large foraminal disc herniation. The operation was done with EMG monitoring, fluoroscopy, microscopic dissection. SURGEON: Lul Bronson M.D. LEAD SUPPLY WORKER: GREG Mora assisted with the surgery. She assisted with the exposure, the microdecompression, discectomy as well as the closure. OPERATIVE INDICATIONS: The patient is a very pleasant 67-year-old man who developed severe intractable back and left leg pain along with weakness in his left leg. On imaging studies, there was a large foraminal disc herniation at L3-L4 on the left and I recommended a transforaminal microdiscectomy. I spoke with him about the surgery, the risks, the technique and expected operative course and he wished to go ahead. DESCRIPTION OF PROCEDURE: Following general endotracheal anesthesia, the patient was positioned prone on the Rodriguez table. Lumbar region was prepped and draped in standard fashion. RONEN hose and AV impulse boots were applied for DVT prophylaxis. A microscope was draped. Fluoroscopy was draped and brought into the field. Monitoring was established. Ancef 3 grams was given less than 1 hour prior to initiation of the surgery. Using fluoroscopic guidance, incision was made directly over the L3-L4 interspace and was taken down the skin and subcutaneous tissue, reflected the paraspinal muscles, placed a long Kuna microdisk retractor. I brought in the microscope and the remainder of surgery was done with a microscope using microscopic technique. I used a high speed air drill to bur a generous hemilaminotomy and then worked superiorly and laterally to visualize the L3 root as it moved laterally into the foramen. I then followed the root laterally. There was herniated disc material just in the proximal side of the foramen, which extended toward the distal side and I opened the ligament and teased back and removed a very large disc fragment. I then explored carefully further laterally. There was another large fragment, which I grasped with a micropituitary, pulled back and removed. Following this, then I explored carefully. Discectomy was performed. I irrigated copiously. I assured myself that the area was very well decompressed. Hemostasis was excellent. I removed the retractor, obtained hemostasis in the muscle and then I irrigated and closed the wound in layers with absorbable suture. The skin was closed with 4-0 subcuticular stitch. The operation went very well and the patient was taken uneventfully to Recovery Room. I was quite pleased with the surgery. LUL BRONSON MD DR: JESUS/joe JOB#: [id number] / [id number] ANNAMARIE
[2018-03-30 13:20] VITALS: BP 128/78
--- NOTE | 2018-04-01 15:09 | PATHOLOGY ---
[facility] Accession Number: [id number] . 01 Material submitted: . LUMBAR DISC AND DECOMPRESSION . 01 Clinical history: . Lumbar herniated disc and radiculopathy . 02 Diagnosis: Segments of fibrocartilaginous and skeletal muscle tissue and bone, lumbar disc and decompression: - Degenerative changes of fibrocartilaginous tissue. 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 02 Comment: There is no evidence of an acute inflammatory process or malignancy. 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 02 Electronically signed: . Carlito Velásquez MD, Pathologist NPI- [id number] . 01 Gross description: . Received in formalin labeled "Deon Ashby, lumbar disc and decompression," are several pieces of glistening, fibrous tissue measuring 5.7 x 4.1 x 2.3 cm in aggregate dimensions, containing small fragments of possible bone. The tissue submitted representatively in cassette A1, following decalcification. (TSD; 03/30/2018) TOB/TOB . 02 Pathologist provided ICD-10: M51.36 . 02 CPT . 173318, [id number] Specimen Comment: A courtesy copy of this report has been sent to Specimen Comment: [phone], . Specimen Comment: Report sent to / DR MERINO Specimen Comment: A duplicate report has been generated due to demographic updates. Performed at: [facility] [address], [place] [id number] MD Misael Molina MD Phone: [phone] Performed at: 02 [facility] [address] [place], [place] [id number] MD Carlito Velásquez MD Phone: [phone]
== END | disposition home or self-care (01) ==
LOC: SURG 07:03
PROVIDERS: ATTEND Neurological Surgery
DX: M51.16 Intervertebral disc disorders with radiculopathy, lumbar region (principal); Z91.030 Bee allergy status; I10 Essential (primary) hypertension; E11.9 Type 2 diabetes mellitus without complications; Z98.890 Other specified postprocedural states; Z83.3 Family history of diabetes mellitus; Z82.49 Family history of ischemic heart disease and other diseases of the circulatory system; F17.210 Nicotine dependence, cigarettes, uncomplicated; Z79.84 Long term (current) use of oral hypoglycemic drugs; Z79.899 Other long term (current) drug therapy
CPT/HCPCS: 63030; 82962; 97162; 97530; A7015; G8978; G8979; G8980; J1100; J1885; J2001; J2250; J2405; J2704; J2710; J3010; J3490; J7030; 76000

== ENCOUNTER 2018-06-24 17:26 | Emergency (ER) | payer MEDICARE ==
[~2018-06-24] VITALS: Ht 172.7 cm; Wt 122.5 kg
[~2018-06-24 17:26] MED LIST changes: -BACITRACIN 50,000 UNIT in IV NORMAL SALINE 1000ML BAG 1,000 ML IRR ONE; -BUPIVAC MPF-EPI 0.5%-1:200000 30 ML VIAL. ONE; -DESFLURANE > 120 MINUTES IH ONE; -DEXAMETHASONE SOD PHOS 20 MG/5 ML VIAL. ONE; -GELATIN SPONGE SIZE 100. ONE; -GLYCOPYRROLATE 1 MG/5 ML VIAL. ONE; -HYDROcodone/APAP 7.5/325MG 1 TAB TABLET PO ONE; -HYDROmorphone 2 MG/ML VIAL IV PRN; -KETOROLAC 60 MG/2 ML INJ FOR OR. ONE; -LIDOCAINE 1% PF 2 ML VIAL. ID PRN; -LIDOCAINE 2% PF Vial for OR 5 ML VIAL. ONE; -MIDAZOLAM HCL/PF 2 MG/2 ML VIAL. ONE; -MORPHINE SULFATE 4 MG/ML VIAL. IV PRN; -NEOSTIGMINE 10 MG/10 ML VIAL. ONE; -ONDANSETRON PF 4 MG/2 ML VIAL. ONE; -PHENYLEPHRINE 10 MG/ML VIAL. ONE; -PROCHLORPERAZINE 10 MG/2 ML VIAL. IV PRN; -PROPOFOL 20 ML IV ONE; -PROPOFOL 50 ML IV ONE; -REMIFENTANIL 1 MG VIAL. IV ONE; -REMIFENTANIL 2 MG VIAL. IV ONE; -ROCURONIUM 50 MG/5 ML VIAL. ONE; -THROMBIN TOPICAL 20,000 UNIT SPRAY.SYRN KIT TP ONE; -ceFAZolin SODIUM 3 GM in IV DEXTROSE 5% 100ML 100 ML IV PRN; -fentaNYL PF VIAL 100 MCG/2 ML VIAL IV PRN; -fentaNYL PF VIAL 100 MCG/2 ML VIAL ONE; -oxyCODONE/APAP 5/325 1 TAB TABLET PO ONE
[2018-06-24] MEDS ORDERED: CYCLOBENZAPRINE 10 MG TABLET. PO ONE (18:15)
[2018-06-24] MEDS ORDERED: HYDROcodone/APAP 5/325MG 1 TAB TABLET PO ONE (18:15)
--- NOTE | 2018-06-24 18:25 | PHYS DOC ---
Past Medical History Past Medical History: Diabetes-Type II, High Cholesterol, Heart Disease, Hypertension Additional Past Medical Histor: [facility] 8 [facility]. FOLLWED WITH [facility], NEUROPATHY Past Surgical History: Appendectomy, Cholecystectomy, Other Additional Past Surgical Histo: hernia Alcohol Use: Sober Drug Use: None Adult General Chief Complaint Chief Complaint: MECHANICAL FALL HPI HPI Patient is a 68 year old male with history of diabetes, hypertension, high cholesterol, who presents to the ED today complaining 9 out of 10 left hand pain , left lateral rib pain, left knee pain and left cheek pain status post falling. Patient states she was at [address] [place] [address], was going down some concrete steps when he made his last step, he tripped and fell. Patient denies any loss of consciousness. Denies any neck pain. Denies use of any anticoagulants. He states most of the pain is on touching the areas affected. He states he has not taken anything for his pain. Patient denies any alcohol use today. Review of Systems Review of Systems Constitutional: Denies fever or chills [] Eyes: Denies change in visual acuity, redness, or eye pain [] HENT: Reports left cheek pain. Denies nasal congestion or sore throat [] Respiratory: Reports left lateral rib pain. Denies cough or shortness of breath [] Cardiovascular: No additional information not addressed in HPI [] GI: Denies abdominal pain, nausea, vomiting, bloody stools or diarrhea [] : Denies dysuria or hematuria [] Musculoskeletal: Reports left knee pain, left hand pain. Denies back pain Integument: Denies rash or skin lesions [] Neurologic: Denies headache, focal weakness or sensory changes [] All other systems were reviewed and found to be within normal limits, except as documented in this note. Current Medications Current Medications Current Medications Medications (Trade) Dose Ordered Sig/Alen Start Time Stop Time Status Last Admin Dose Admin Acetaminophen/ Hydrocodone Bitart (Lortab 5/325) 1 tab 1X ONCE 06/24/18 18:15 06/24/18 18:16 DC 06/24/18 18:53 1 TAB Cyclobenzaprine HCl (Flexeril) 10 mg 1X ONCE 06/24/18 18:15 06/24/18 18:16 DC 06/24/18 18:53 10 MG Diphtheria/ Tetanus/Acell Pertussis (Boostrix) 0.5 ml ONCE ONCE 4/3/19 18:30 06/24/18 18:31 DC 06/24/18 18:54 0.5 ML Allergies Allergies Allergies Coded Allergies Type Severity Reaction Last Updated Verified venom-honey bee Allergy Intermediate Swelling 03/30/18 Yes Physical Exam Physical Exam Constitutional: Well developed, well nourished, no acute distress, non-toxic appearance. [] HENT: Normocephalic, atraumatic, bilateral external ears normal, oropharynx moist, no oral exudates, nose normal. Left cheek with slight bruising Eyes: PERRLA, EOMI, conjunctiva normal, no discharge. [] Neck: Normal range of motion, no tenderness, supple, no stridor. [] Cardiovascular:Heart rate regular rhythm, no murmur [] Lungs & Thorax: Bilateral breath sounds clear to auscultation. Tenderness on palpation of the left lateral ribs mid clavicular line Abdomen: Rounded abdomen with 2 hernias on each side of the abdomen. This is chronic. Bowel sounds normal, soft, no tenderness, no masses, no pulsatile masses. [] Skin: Warm, dry, no erythema, no rash. [] Back: No tenderness, no CVA tenderness. [] Extremities: Slight bruising noted on the anterior aspect of the left knee. Slight tenderness to the anterior aspect of the left knee. No cyanosis, no clubbing, ROM intact, no edema. [] Neurologic: Alert and oriented X 3, normal motor function, normal sensory function, no focal deficits noted. Cranial nerves II through XII intact Psychologic: Affect normal, judgement normal, mood normal. [] Current Patient Data Vital Signs Vital Signs Date Time Temp Pulse Resp B/P (MAP) Pulse Ox O2 Delivery O2 Flow Rate FiO2 06/24/18 19:00 87 19 98 06/24/18 18:00 98.3 150/87 (108) Room Air 98.3 EKG EKG [] Radiology/Procedures Radiology/Procedures []PROCEDURE: CT HEAD AND MAXILLOFACIAL WO PQRS Compliance statement: One or more of the following individualized dose reduction techniques were utilized for this examination: 1. Automated exposure control. 2. Adjustment of the mA and/or kV according to patient size. 3. Use of iterative reconstruction technique. Indication:Fall. Left facial pain. TECHNIQUE: CT head without IV contrast COMPARISON: None FINDINGS: No pathologic extra-axial or intra-axial fluid collection. The ventricles and basal cisterns are within normal limits. No acute intracranial bleed. No large scalp hematoma. Orbits within normal limits. No acute calvarial fracture. IMPRESSION: No acute intracranial process. Indication:Fall. Left facial pain. TECHNIQUE: CT of the maxillofacial bones without IV contrast multiplanar reformats. COMPARISON: None FINDINGS: Motion artifact noted limiting optimal evaluation. The nasal septum is midline. Bilateral zygoma and zygomatic arches are within normal limits. Bilateral external artery canals and inner ear cavities are within normal limits. Bilateral pterygoid plates are within normal limits. The lenses, globes, extraocular muscles and intraorbital fat are within normal limits. No fascial soft tissue edema or inflammatory changes. The nasopharynx and oropharynx within normal limits. No acute fractures. Significant mucoperiosteal thickening is seen of the right maxillary sinus. Rest of the paranasal sinuses and mastoid air cells are clear. Bilateral temporomandibular joints and mandible are within normal limits. Visualized upper cervical spine is within normal limits. IMPRESSION: 1. No acute fractures. 2. Chronic right maxillary sinus disease. Electronically signed by: Donnell Wiggins DO (06/24/2018 6:36 PM) [facility] DICTATED and SIGNED BY: DONNELL WIGGINS DO DATE: 06/24/181835 Course & Med Decision Making Course & Med Decision Making Pertinent Labs and Imaging studies reviewed. (See chart for details) This is a 5-year-old male patient who presents to the ED today for left cheek pain, left hand pain, left rib pain, left knee pain, status post falling [place] the [place]. CT of the head and maxillary facial was negative for any acute findings. Left hand x-rays, left rib x-rays including PA chest and left knee x- rays interpreted by Dr. Leong were negative. Patient was discharged with Tylenol 3 and cyclobenzaprine as needed for pain. Ice elevation encouraged. Follow-up with PCP in 1-2 weeks. Dragon Disclaimer Dragon Disclaimer This electronic medical record was generated, in whole or in part, using a voice recognition dictation system. Departure Departure Impression: Primary Impression: Contusion of rib on left side Additional Impressions: Contusion of face Contusion of left knee Fall down steps Disposition: 01 HOME, SELF-CARE Condition: STABLE Referrals: THEODORE MERINO MD (PCP) follow up in 1 week Patient Instructions: Contusion, Fall Prevention and Home Safety Additional Instructions: You were evaluated in the emergency room after falling. Your CT of the head and face were negative for any acute findings. Your x-rays of the left ribs including chest, left hand and left knee were negative for any acute findings. Try to ice and elevate the affected areas. Take the prescribed medications as needed. Follow-up with your own doctor in 1-2 weeks. Scripts Cyclobenzaprine Hcl (CYCLOBENZAPRINE HCL) 10 Mg Tablet 1 TAB PO TID, #30 TAB Prov: BEL MULLEN APRN 06/24/18 Acetaminophen With Codeine (TYLENOL WITH CODEINE #3 TABLET) 1 Each Tablet 1 TAB PO PRN Q6HRS PRN for PAIN, #20 TAB Prov: BEL MULLEN ADMINISTRATOR PESTIC[employer] 06/24/18 Problem Qualifiers Primary Impression: Contusion of rib on left side Encounter type: initial encounter Qualified Codes: S20.212A - Contusion of left front wall of thorax, initial encounter Additional Impressions: Contusion of face Encounter type: initial encounter Qualified Codes: S00.83XA - Contusion of other part of head, initial encounter Contusion of left knee Encounter type: initial encounter Qualified Codes: S80.02XA - Contusion of left knee, initial encounter Fall down steps Encounter type: initial encounter Qualified Codes: W10.8XXA - Fall (on) ( from) other stairs and steps, initial encounter BEL MULLEN APRN Jun 24, 2018 18:25
[2018-06-24] MEDS ORDERED: DIPHTH,PERTUSS(ACELL),TET TOX 0.5 ML DISP.SYRIN. VAX IM ONE (18:30)
--- NOTE | 2018-06-24 18:40 | RAD ---
PQRS Compliance statement: One or more of the following individualized dose reduction techniques were utilized for this examination: 1. Automated exposure control. 2. Adjustment of the mA and/or kV according to patient size. 3. Use of iterative reconstruction technique. Indication:Fall. Left facial pain. TECHNIQUE: CT head without IV contrast COMPARISON: None FINDINGS: No pathologic extra-axial or intra-axial fluid collection. The ventricles and basal cisterns are within normal limits. No acute intracranial bleed. No large scalp hematoma. Orbits within normal limits. No acute calvarial fracture. IMPRESSION: No acute intracranial process. Indication:Fall. Left facial pain. TECHNIQUE: CT of the maxillofacial bones without IV contrast multiplanar reformats. COMPARISON: None FINDINGS: Motion artifact noted limiting optimal evaluation. The nasal septum is midline. Bilateral zygoma and zygomatic arches are within normal limits. Bilateral external artery canals and inner ear cavities are within normal limits. Bilateral pterygoid plates are within normal limits. The lenses, globes, extraocular muscles and intraorbital fat are within normal limits. No fascial soft tissue edema or inflammatory changes. The nasopharynx and oropharynx within normal limits. No acute fractures. Significant mucoperiosteal thickening is seen of the right maxillary sinus. Rest of the paranasal sinuses and mastoid air cells are clear. Bilateral temporomandibular joints and mandible are within normal limits. Visualized upper cervical spine is within normal limits. IMPRESSION: 1. No acute fractures. 2. Chronic right maxillary sinus disease. Electronically signed by: Donnell Wiggins DO (06/24/2018 6:36 PM) [facility]
[2018-06-24 19:00] VITALS: BP 154/89
--- NOTE | 2018-06-24 19:27 | RAD ---
Indication:ER PATIENT. TRAUMA FALL TODAY. PAIN IN THE LEFT KNEE. NO PRIORS. TECHNIQUE: 3 views of the left knee COMPARISON:None FINDINGS: No acute fracture or dislocation. Soft tissue thickening is seen in the region of quadriceps tendon. IMPRESSION: 1. No acute osseous findings. 2. Soft tissue fullness in the anterior distal thigh/suprapatellar region may represent hematoma, edema or quadriceps tendon pathology. Clinically correlate with physical exam. Electronically signed by: Donnell Wiggins DO (06/24/2018 7:24 PM) [facility]
--- NOTE | 2018-06-24 19:29 | RAD ---
Indication:ER PATIENT. TRAUMA FALL TODAY. PAIN IN THE LEFT HAND. NO PRIORS TECHNIQUE: 3 views of left hand COMPARISON:None FINDINGS: No acute fracture or dislocation. 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 IMPRESSION: As above. Electronically signed by: Donnell Wiggins DO (06/24/2018 7:26 PM) [facility]
[2018-06-24] MEDS ORDERED: ACET-704 PO (19:38)
[2018-06-24] MEDS ORDERED: CYCL10TA2 PO (19:38)
--- NOTE | 2018-06-24 21:21 | RAD ---
Indication: Trauma with left rib pain. TECHNIQUE: AP chest and multiple views of the left ribs COMPARISON: Plain film from 07/24/2017 FINDINGS: Heart is normal in size. Focal opacity seen in the left upper lobe measuring 3.7 cm. Otherwise, lungs are clear. No pneumothorax or pleural effusion. No acute fractures. IMPRESSION: 1. No acute fractures. 2. Left upper lobe opacity concerning for pulmonary mass. CT chest with IV contrast recommended. Electronically signed by: Donnell Wiggins DO (06/24/2018 9:18 PM) [facility]
[2018-08-18] MEDS ORDERED: PANT20TA2 PO (12:50)
[2018-08-18] MEDS ORDERED: METF100010 PO (12:53)
[2018-08-25] MEDS ORDERED: OXYC5TAB4 PO (14:17)
[2018-08-25] MEDS ORDERED: SENN-22 PO (14:17)
== END 2018-06-24 19:50 | disposition home or self-care (01) ==
LOC: ER 17:26
DX: S20.212A Contusion of left front wall of thorax, initial encounter (principal); S80.02XA Contusion of left knee, initial encounter; S00.83XA Contusion of other part of head, initial encounter; M79.602 Pain in left arm; I11.9 Hypertensive heart disease without heart failure; E11.40 Type 2 diabetes mellitus with diabetic neuropathy, unspecified; E78.00 Pure hypercholesterolemia, unspecified; I25.2 Old myocardial infarction; Z91.030 Bee allergy status; W01.0XXA Fall on same level from slipping, tripping and stumbling without subsequent striking against object, initial encounter; Y93.89 Activity, other specified; Y92.89 Other specified places as the place of occurrence of the external cause; Y99.8 Other external cause status
CPT/HCPCS: 70450; 70486; 71101; 73130; 73564; 90471; 90715; 99284-25

== ENCOUNTER → 2018-07-15 | Outpatient (CLI) | payer MEDICARE ==
[2018-06-24 19:00] VITALS: BP 154/89
[~2018-07-15] MED LIST changes: +CONTRAST GIVEN. MC PRN; +IOHEXOL 300 MG/ML 100ML VIAL. IV ONE; +METF100010 PO; +OXYC5TAB4 PO; +SENN-22 PO
[2018-07-15 09:25] LABS: CREATININE 1.1 mg/dL (0.7-1.3); GFR 66.2
--- NOTE | 2018-07-15 12:56 | RAD ---
Examination: CT CHEST W/CONTRAST History: L LUNG MASS INJ 75ML OMNI 300 NO PRIOR Comparison/Correlation: 06/24/2017 left ribs and PA view of the chest x-ray exam Findings: Axial images of chest were obtained following IV contrast. Sagittal and coronal reformatted images were provided. Calcified granulomas involve the right lower lung field. Calcified granuloma at the left upper lung field also is present. Minimal linear atelectasis adjacent to the right lower mediastinum noted. Left upper lobe mass is present and minimally abuts the pleura laterally. It is lobulated measuring 3.5 cm transverse by 3.8 cm anteroposterior by 2.7 cm longitudinal. No surrounding infiltrate. No enlarged thoracic lymph nodes. Minimal centrilobular emphysematous involvement of the lung black may present. Thoracic aortic morphology is grossly unremarkable. No pleural or pericardial effusion. Cholecystectomy is noted. Upper abdominal ventral hernia defect in the left of midline is suggested to very superior aspect. Full extent is not included on these images. Bony images are unremarkable for the patient's age. IMPRESSION: Left upper lobe lobulated mass is present likely representing primary pulmonary malignancy. Consider PET/CT examination or other further assessment. PQRS Compliance Statement: One or more of the following individualized dose reduction techniques were utilized for this examination: 1. Automated exposure control 2. Adjustment of the mA and/or kV according to patient size 3. Use of iterative reconstruction technique Electronically signed by: Yousuf Gomez MD (07/15/2018 12:52 PM) [facility]
== END | disposition home or self-care (01) ==
LOC: CT 11:16
PROVIDERS: ATTEND Family Medicine
DX: J43.2 Centrilobular emphysema (principal); J98.11 Atelectasis; R91.8 Other nonspecific abnormal finding of lung field; K43.9 Ventral hernia without obstruction or gangrene; Z90.49 Acquired absence of other specified parts of digestive tract; Z87.891 Personal history of nicotine dependence
CPT/HCPCS: 36415; 71260; 82565; Q9967

== ENCOUNTER → 2018-08-06 | Outpatient (CLI) | payer MEDICARE ==
[~2018-08-06] MED LIST changes: -CONTRAST GIVEN. MC PRN; -IOHEXOL 300 MG/ML 100ML VIAL. IV ONE
--- NOTE | 2018-08-06 13:09 | RAD ---
FDG tumor localization scan, PET/CT, 08/06/2018: History: Lung mass Following IV injection of 14.6 mCi of 18 F-FDG, imaging was performed from the skull base to the proximal thighs. The noncontrast CT component was performed for attenuation correction and anatomic localization purposes rather than for primary diagnosis. The patient's blood glucose level at time of injection was 126 MG/DL. Physiologic activity is present in the neck. No hypermetabolic neck process is seen. There is a 4.1 cm lobulated soft tissue mass in the left upper lobe which is hypermetabolic. It demonstrates a maximum SUV of 28.9. No other hypermetabolic pulmonary abnormality is seen. The CT component does demonstrate scattered calcified granulomata. There is a 4 mm noncalcified nodule in the posterior aspect of the left upper lobe abutting the superior aspect of the oblique fissure. It does not demonstrate abnormal FDG uptake, however, it is too small to accurately characterize with FDG PET imaging. A similar tiny subpleural nodule is noted laterally in the right apex. No hypermetabolic mediastinal or hilar adenopathy is seen. Normal GI tract and urinary tract activity is present in the abdomen and pelvis. There is a large ventral hernia containing multiple loops of nonobstructed large and small bowel. No hypermetabolic abdominal or pelvic mass is seen. Incidental CT findings include the presence of a hepatic steatosis. The prostate gland is mildly enlarged. Several coronary artery calcifications are noted. There has been a previous lumbar laminectomy on the left. IMPRESSION: 1. Hypermetabolic left upper lobe pulmonary mass compatible with a primary lung malignancy. 2. Additional tiny upper lobe pulmonary nodules which are too small for accurate FDG/PET characterization. 3. No FDG/PET evidence of metastatic disease. 4. Large ventral hernia.
== END | disposition home or self-care (01) ==
LOC: PETSC 10:23
PROVIDERS: ATTEND Internal Medicine Critical Care Medicine
DX: K43.9 Ventral hernia without obstruction or gangrene (principal); R91.8 Other nonspecific abnormal finding of lung field; K76.0 Fatty (change of) liver, not elsewhere classified; I25.10 Atherosclerotic heart disease of native coronary artery without angina pectoris
CPT/HCPCS: 78815; A9552

== ENCOUNTER 2018-08-10 06:54 | Outpatient (CLI) | payer MEDICARE ==
[~2018-08-10] VITALS: Ht 172.7 cm; Wt 124.7 kg
[2018-08-10] VITALS (13 sets, daily range): BP systolic 98–121; BP diastolic 62–82
[~2018-08-10 06:54] MED LIST changes: -METF100010 PO; -OXYC5TAB4 PO; -SENN-22 PO
[2018-08-10] MEDS ORDERED: MIDAZOLAM HCL/PF 2 MG/2 ML VIAL. ONE (07:57)
[2018-08-10] MEDS ORDERED: fentaNYL PF VIAL 100 MCG/2 ML VIAL ONE (07:58)
[2018-08-10 08:03] LABS: BASO # 0.1 x10^3/uL (0.0-0.2); BASO % 1 % (0-3); EOS # 0.3 x10^3/uL (0.0-0.7); EOS % 2 % (0-3); HEMATOCRIT 46.1 % (39.0-53.0); HEMOGLOBIN 15.9 g/dL (13.0-17.5); LYMPH # 3.8 x10^3/uL (1.0-4.8); LYMPH % 35 % (24-48); MEAN CORPUSCULAR HEMOGLOBIN 31 pg (25-35); MEAN CORPUSCULAR HGB CONC 34 g/dL (31-37); MEAN CORPUSCULAR VOLUME 91 fL (79-100); MONO # 0.9 x10^3/uL (0.0-1.1); MONO % 9 % (0-9); NEUT # 5.7 x10^3uL (1.8-7.7); NEUT % 53 % (31-73); PLATELET COUNT 277 x10^3/uL (140-400); RED BLOOD COUNT 5.05 x10^6/uL (4.30-5.70); RED CELL DISTRIBUTION WIDTH 13.9 % (11.5-14.5); WHITE BLOOD COUNT 10.7 x10^3/uL (4.0-11.0)
[2018-08-10 08:19] LABS: PROTHROMBIN TIME PATIENT 13.3 SEC (11.7-14.0)
[2018-08-10] MEDS ORDERED: LIDOCAINE WITH 8.4% SOD BICARB 3 ML DISP.SYRIN. ONE (08:50)
[2018-08-10] MEDS ORDERED: MIDAZOLAM HCL/PF 2 MG/2 ML VIAL. IV ONE (09:00)
[2018-08-10] MEDS ORDERED: fentaNYL PF VIAL 100 MCG/2 ML VIAL IV ONE (09:00)
[2018-08-10] MEDS ORDERED: LIDOCAINE WITH 8.4% SOD BICARB 3 ML DISP.SYRIN. IJ ONE (09:00)
--- NOTE | 2018-08-10 09:38 | PDOC ---
MODERATE SEDATION ASSESSMENT RISKS/ALTERNATIVES Risks/Alternatives Risks and alternatives of this type of sedation and procedure discussed with: RISK/ALTERNATIVES: Patient H & P ON CHART H & P H & P on chart and reviewed for co-morbid conditions and appropriate labs. H&P ON CHART: Yes STATUS PREG STATUS ASSESSED: Yes MEDS/ALLERGIES REVIEWED Meds/Allergies Reviewed Medications and Allergies including time and route of recently administered narcotics and sedatives. MEDS/ALLERGIES REVIEWED: Yes ASA RATING ASA RATING: II AIRWAY ASSESSMENT Airway Assessment Airway patency, oral function limitations, presence of caps, crowns, dentures, partials, and ability to extend neck assessed. AIRWAY ASSESSMENT: Yes MALLAMPATI SCORE MALLAMPATI SCORE: II PRE-SEDATION ASSESSMENT PRE-SEDATION ASSESSMENT: Yes KARLA HIGH MD August 10, 2018 09:38
--- NOTE | 2018-08-10 09:47 | RAD ---
CT-guided biopsy, left upper lobe mass 08/10/2018 Clinical Indication: PET avid left upper lobe mass suspicious for malignancy Sedation: Conscious sedation was administered for 20 minutes. The patient was monitored by a qualified independent observer throughout the time of sedation. Please refer to the medical record for exact doses of medications utilized to achieve moderate sedation. Antibiotics: None Sterility: All elements of maximal sterile barrier technique including the use of a cap, mask, sterile gown, sterile gloves, large sterile sheet, appropriate hand hygiene, and 2% chlorhexidine for cutaneous antisepsis (or acceptable alternative antiseptic per current guidelines) were followed for this procedure. Consent: The procedure was explained in its entirety to the patient or the patients designated senior human resources representative by a member of the treatment team, including a discussion of the risks, benefits and commonly accepted alternatives to the procedure, as well as the expected consequences of no therapy whatsoever. Discussion of the risks included, but was not limited to, those that are most frequent and those that are rare but possibly severe or life-threatening, as well as the possibility of unforeseen complications. Technique and Findings: Following informed consent, the patient was prepped and draped in the usual sterile fashion. 1% Lidocaine was used to achieve local anesthesia over the anterior left chest. A small dermatotomy was made. Under periodic CT surveillance, a 17-gauge needle was advanced into the aforementioned mass. Multiple core biopsies were obtained and placed in formalin. The needle was removed. Repeat imaging demonstrates no pneumothorax, significant hemorrhage, or other complication. The patient tolerated the procedure well remaining hemodynamically stable throughout. Impression: CT-guided biopsy, left upper lobe pulmonary mass. PQRS Compliance Statement: One or more of the following individualized dose reduction techniques were utilized for this examination: 1. Automated exposure control 2. Adjustment of the mA and/or kV according to patient size 3. Use of iterative reconstruction technique
--- NOTE | 2018-08-10 11:35 | NUR ---
Discharge Note: DWAYNE MAGANA Discharge instructions and discharge home medications reviewed with Patient and a copy given. All questions have been answered and understanding verbalized. The following instructions and handouts were given: moderate sedation and post lung biopsy care Discontinued lines and drains: Peripheral IV intact. Patient discharged to Home or Self Care withFamily Membervia Wheelchair
--- NOTE | 2018-08-10 11:45 | RAD ---
Portable chest, 08/10/2018: HISTORY: Post lung biopsy evaluation Comparison is made to a study from 06/24/2018. The heart size is normal. A pulmonary mass is again noted in the left upper chest. No acute infiltrate is seen. There is no evidence of pneumothorax or significant pleural fluid. IMPRESSION: No evidence of pneumothorax status post left lung biopsy. Electronically signed by: Jose Manuel Valadez MD (08/10/2018 11:42 AM) [facility]
--- NOTE | 2018-08-12 16:06 | PATHOLOGY ---
[facility] Accession Number: [id number] . 01 Material submitted: . lung - LEFT LUNG MASS. Modifiers: left . 01 Clinical history: . Left lung mass . 02 Diagnosis: Lung tissue, left lung mass needle biopsies: - POORLY DIFFERENTIATED ADENOCARCINOMA. SEE COMMENT. (JPM:maxwell; 08/12/2018) MBR/08/12/2018 . 02 Comment: Sections of the left lung mass needle biopsies show replacement of lung parenchyma by a malignant epithelial neoplasm. The malignant cells are present in solid nests within a reactive desmoplastic stroma showing chronic inflammation and focal granulomatous inflammation. The malignant cells have ample amounts of eosinophilic to focally finely vacuolated cytoplasm, and possess enlarged, rounded to ovoid moderately pleomorphic nuclei containing prominent nucleoli. Mitotic figures are present. There is no obvious evidence of glandular or squamous differentiation. A panel of immunoperoxidase stains is obtained on block A1 and yields the following results: . Cytokeratin 7: Tumor cells positive. P63: Tumor cells largely negative with small focus of positive tumor cells noted. P40: Tumor cells negative. CD68: Tumor cells negative; stromal histiocytes positive. TTF-1: Tumor cells positive. . The morphologic and immunophenotypic findings are supportive of the diagnosis of a poorly differentiated pulmonary adenocarcinoma, solid type. The case is also examined by Dr. Enriquez, who concurs with the diagnosis. The results are reported to Dr. Ross on 08/11/18 at 2:00 PM. (JPM:maxwell; 08/12/2018) . Special stains performed: CK7, TTF-1, p63, p40, and CD68. . 02 Electronically signed: . Carlito Velásquez MD, Pathologist NPI- [id number] . 01 Gross description: . The specimen is received in formalin, labeled "Isma, Deon, left lung" and consists of 3 delicate needle cores of pink-nichols tissue measuring 0.3 cm and 0.8 cm in length and 0.1 cm or less each in diameter. They are entirely submitted in A1. (SDY; 08/10/2018) SYU/SYU . 02 Pathologist provided ICD-10: C34.92 . 02 CPT . 228141, J73951, [id number] Specimen Comment: A courtesy copy of this report has been sent to Specimen Comment: [phone], , . Specimen Comment: Report sent to ,DR ROSS / DR MERINO Performed at: 01 [facility] [address] [facility] [address], [place] [id number] MD Misael Molina MD Phone: [phone] Performed at: 02 [facility] [address] [place], [place] [id number] MD Carlito Velásquez MD Phone: [phone]
[2018-08-18] MEDS ORDERED: PANT20TA2 PO (12:50)
[2018-08-18] MEDS ORDERED: METF100010 PO (12:53)
[2018-08-25] MEDS ORDERED: SENN-22 PO (14:17)
[2018-08-25] MEDS ORDERED: OXYC5TAB4 PO (14:17)
== END 2018-08-10 11:49 | disposition home or self-care (01) ==
LOC: INTRAD 06:54
PROVIDERS: ATTEND Internal Medicine Critical Care Medicine
DX: C34.92 Malignant neoplasm of unspecified part of left bronchus or lung (principal); Z79.899 Other long term (current) drug therapy; Z79.01 Long term (current) use of anticoagulants
CPT/HCPCS: 32405; 36415; 71045; 77012; 85025; 85610; 85730; 88305; 88341; 88342; J2250; J3010; 99152

== ENCOUNTER → 2018-09-02 | Outpatient (CLI) | payer MEDICARE ==
[2018-08-26 10:48] VITALS: BP 106/80
[~2018-09-02] MED LIST changes: +METF100010 PO; +OXYC5TAB4 PO; +SENN-22 PO
--- NOTE | 2018-09-02 15:08 | RAD ---
CHEST PA LATERAL History: Shortness of breath, history of lung cancer Comparison: August 26, 2018 Findings: 2 views of the chest are submitted. There is again gas in the left neck soft tissues although decreased, interval resolution of gas in the left lateral chest wall. No definitive pneumothorax is identified by radiograph. There is small left pleural effusion. Cardiac silhouette is stable. There is some increased interstitial and reticular opacity at the lung bases. There is again fracture left lateral fifth rib. Impression: 1. There is decreased gas in the left neck soft tissues, no definitive pneumothorax identified by radiograph. There is small left pleural effusion. There is some increased interstitial and reticular opacity at the lung bases possibly component of edema. Electronically signed by: Aflred Rueda MD (09/02/2018 3:05 PM) [place] [id number]
== END | disposition home or self-care (01) ==
LOC: RAD 14:29
PROVIDERS: ATTEND Family Medicine
DX: S22.32XA Fracture of one rib, left side, initial encounter for closed fracture (principal); J90 Pleural effusion, not elsewhere classified; R91.8 Other nonspecific abnormal finding of lung field; Z85.118 Personal history of other malignant neoplasm of bronchus and lung; X58.XXXA Exposure to other specified factors, initial encounter; Y93.89 Activity, other specified; Y92.89 Other specified places as the place of occurrence of the external cause; Y99.8 Other external cause status
CPT/HCPCS: 71046

== ENCOUNTER 2018-09-05 17:42 | Emergency (ER) | payer MEDICARE ==
[~2018-09-05] VITALS: Ht 172.7 cm; Wt 73.0 kg
[2018-09-05] MEDS ORDERED: IV NORMAL SALINE 1000ML BAG 1,000 ML IV ONE (18:30)
[2018-09-05 18:36] LABS: BASO # 0.1 x10^3/uL (0.0-0.2); BASO % 1 % (0-3); EOS # 0.2 x10^3/uL (0.0-0.7); EOS % 1 % (0-3); HEMATOCRIT 35.5 % (39.0-53.0); LYMPH # 4.1 x10^3/uL (1.0-4.8); LYMPH % 26 % (24-48); MEAN CORPUSCULAR HEMOGLOBIN 30 pg (25-35); MEAN CORPUSCULAR HGB CONC 34 g/dL (31-37); MEAN CORPUSCULAR VOLUME 88 fL (79-100); MONO # 1.4 x10^3/uL (0.0-1.1); MONO % 9 % (0-9); NEUT # 9.8 x10^3uL (1.8-7.7); NEUT % 63 % (31-73); PLATELET COUNT 559 x10^3/uL (140-400); RED BLOOD COUNT 4.06 x10^6/uL (4.30-5.70); RED CELL DISTRIBUTION WIDTH 14.6 % (11.5-14.5); WHITE BLOOD COUNT 15.6 x10^3/uL (4.0-11.0)
[2018-09-05 18:56] LABS: PROTHROMBIN TIME PATIENT 14.3 SEC (11.7-14.0)
[2018-09-05 19:04] LABS: CALCIUM 9.7 mg/dL (8.5-10.1); CREATININE 1.1 mg/dL (0.7-1.3); GFR 66.2; POTASSIUM 3.5 mmol/L (3.5-5.1)
[2018-09-05 19:07] LABS: ACETAMIN < 2.0 mcg/ml (10-30); ETHANOL < 10 mg/dL (0-10); SALIC < 2.8 mg/dL (2.8-20.0)
[2018-09-05 19:09] LABS: ALBUMIN 3.8 g/dL (3.4-5.0); ALBUMIN/GLOBULIN RATIO 1.1 (1.0-1.7); MAGNESIUM 2.1 mg/dL (1.8-2.4); TOTAL BILIRUBIN 0.5 mg/dL (0.2-1.0); TOTAL PROTEIN 7.3 g/dL (6.4-8.2)
[2018-09-05 19:14] LABS: CREATINE KINASE 58 U/L (39-308)
--- NOTE | 2018-09-05 19:18 | RAD ---
EXAM: CHEST 2 VIEWS. HISTORY: Altered mental status. COMPARISON: 09/02/2018. FINDINGS: Frontal and lateral views of the chest are obtained. Atelectasis in the left base is unchanged. There is mild elevation of the left hemidiaphragm and a small left pleural effusion. Left rib fractures are again noted. There is a small amount of gas in the left chest wall. There is no appreciable pneumothorax. The heart is not enlarged. There are atherosclerotic calcifications of the aorta. There are calcified granulomas on the left. IMPRESSION: 1. Small left pleural effusion. Left basilar atelectasis. Displaced left rib fractures. Electronically signed by: Zay Dominguez MD (09/05/2018 7:15 PM) [facility]
--- NOTE | 2018-09-05 19:20 | RAD ---
EXAM: CT HEAD WITHOUT CONTRAST. HISTORY: Altered mental status. TECHNIQUE: Computed tomography of the head was performed without intravenous contrast. COMPARISON: None. FINDINGS: There is no intracranial hemorrhage. Hypoattenuation within the periventricular white matter indicates mild chronic microangiopathic change. The ventricles are normal in size and position. There is a small mucus retention cyst in the right ethmoid air cells. The orbits are unremarkable. There is a small amount of fluid in the right mastoid air cells. The calvarium reveals no suspicious lesions. IMPRESSION: 1. No acute intracranial findings. 2. Mild chronic microangiopathic white matter change. *One or more of the following individualized dose reduction techniques were utilized for this examination: 1. Automated exposure control. 2. Adjustment of the mA and/or kV according to patient size. 3. Use of iterative reconstruction technique. Electronically signed by: Zay Dominguez MD (09/05/2018 7:17 PM) [facility]
[2018-09-05] MEDS ORDERED: ONDANSETRON PF 4 MG/2 ML VIAL. IV PRN (20:00)
[2018-09-05] MEDS ORDERED: DEXTROSE 50% 25 GM / 50ML DISP.SYRIN. IV PRN (20:00)
--- NOTE | 2018-09-05 20:05 | PHYS DOC ---
Past Medical History Past Medical History: CAD, Cancer (Lung), Diabetes-Type II, Hypertension, Lung Disease Additional Past Medical Histor: [place] FOLLWED WITH MCSWEYN, NEUROPATHY Past Surgical History: Appendectomy, Cholecystectomy, Other Additional Past Surgical Histo: left lung lobectomy Smoking: Cigarettes Alcohol Use: None Drug Use: None Adult General Chief Complaint Chief Complaint: ALTERED MENTAL STATUS HPI HPI 68-year-old male presents with his daughter with report of altered mental status status post left lung lobectomy 2 weeks ago. Patient started to have some increased confusion/delirium while in the hospital. Reports has had similar in the past which [facility] diagnosed patient in past as having "hospital dementia." Patient apparently has also had some difficulty with sleeping due to pain to left chest wall at site of recent surgery. Reports wound has been healing normally. Patient also has been having some visual hallucinations. Reports he called his daughter today noting there were several individuals (from the "circus") in his house as well as several cows in his front yard. Denies auditory hallucinations. Denies fever/chills. Reports some productive cough. Denies trauma. Denies headache. Daughter reports that she called Dr. Silver's counterperson service and spoke with Dr. Hurst, who requested patient present to the ED for evaluation of his oxygen and to look for signs of infection. Review of Systems Review of Systems Constitutional: Denies fever or chills Eyes: Denies redness or eye pain HENT: Denies nasal congestion or sore throat Respiratory: Reports productive cough; denies shortness of breath Cardiovascular: Reports chest wall pain at site of recent surgery; denies palpitations GI: Denies abdominal pain, nausea, or vomiting : Denies dysuria or hematuria Musculoskeletal: Denies back pain or joint pain Integument: Denies rash or skin lesions Neurologic: Denies headache, focal weakness or sensory changes Psychiatric: Reports visual hallucinations; denies auditory hallucinations; reports anxiety; denies suicidal or homicidal ideation Complete systems were reviewed and found to be within normal limits, except as documented in this note. Current Medications Current Medications Current Medications Medications (Trade) Dose Ordered Sig/Alen Start Time Stop Time Status Last Admin Dose Admin Sodium Chloride 1,000 ml @ 1,000 mls/hr 1X ONCE 09/05/18 18:30 09/05/18 19:29 DC 09/05/18 18:49 1,000 MLS/HR Allergies Allergies Allergies Coded Allergies Type Severity Reaction Last Updated Verified venom-honey bee Allergy Intermediate Swelling 08/20/18 Yes ASUNCION Inhibitors Adverse Reaction Intermediate 08/26/18 Yes Physical Exam Physical Exam Constitutional: Well developed, well nourished, no acute distress, non-toxic appearance HENT: Normocephalic, atraumatic, oropharynx moist Eyes: PERRL, EOMI, conjunctiva normal, no discharge, no nystagmus Neck: Normal range of motion, no tenderness, supple, no meningeal signs Cardiovascular: Heart rate normal, regular rhythm Lungs & Thorax: Bilateral breath sounds clear to auscultation, diminished to left base Abdomen: Soft, no tenderness Skin: Warm, dry, no erythema, no rash, pallor noted, left chest wall with healing incision site, incision clean/dry/intact, no surrounding erythema Extremities: No tenderness, ROM intact, no edema Neurologic: Alert and oriented X 3, normal motor function, normal sensory function, no focal deficits noted Psychologic: Affect normal, judgement normal; denies active hallucinations Current Patient Data Vital Signs Vital Signs Date Time Temp Pulse Resp B/P (MAP) Pulse Ox O2 Delivery O2 Flow Rate FiO2 09/05/18 19:20 100 16 96 09/05/18 18:04 97.6 121/67 (85) Room Air 97.6 Lab Values Laboratory Tests Test 09/05/18 17:52 09/05/18 18:33 09/05/18 19:14 White Blood Count 15.6 x10^3/uL (4.0-11.0) H Red Blood Count 4.06 x10^6/uL (4.30-5.70) L Hemoglobin 12.0 g/dL (13.0-17.5) L Hematocrit 35.5 % (39.0-53.0) L Mean Corpuscular Volume 88 fL (79-100) Mean Corpuscular Hemoglobin 30 pg (25-35) Mean Corpuscular Hemoglobin Concent 34 g/dL (31-37) Red Cell Distribution Width 14.6 % (11.5-14.5) H Platelet Count 559 x10^3/uL (140-400) H Neutrophils (%) (Auto) 63 % (31-73) Lymphocytes (%) (Auto) 26 % (24-48) Monocytes (%) (Auto) 9 % (0-9) Eosinophils (%) (Auto) 1 % (0-3) Basophils (%) (Auto) 1 % (0-3) Neutrophils # (Auto) 9.8 x10^3uL (1.8-7.7) H Lymphocytes # (Auto) 4.1 x10^3/uL (1.0-4.8) Monocytes # (Auto) 1.4 x10^3/uL (0.0-1.1) H Eosinophils # (Auto) 0.2 x10^3/uL (0.0-0.7) Basophils # (Auto) 0.1 x10^3/uL (0.0-0.2) Prothrombin Time 14.3 SEC (11.7-14.0) H Prothrombin Time INR 1.1 (0.8-1.1) PTT 30 SEC (24-38) Sodium Level 139 mmol/L (136-145) Potassium Level 3.5 mmol/L (3.5-5.1) Chloride Level 99 mmol/L (98-107) Carbon Dioxide Level 27 mmol/L (21-32) Anion Gap 13 (6-14) Blood Urea Nitrogen 16 mg/dL (8-26) Creatinine 1.1 mg/dL (0.7-1.3) Estimated GFR (Cockcroft-Gault) 66.2 BUN/Creatinine Ratio 15 (6-20) Glucose Level 136 mg/dL (70-99) H Calcium Level 9.7 mg/dL (8.5-10.1) Magnesium Level 2.1 mg/dL (1.8-2.4) Total Bilirubin 0.5 mg/dL (0.2-1.0) Aspartate Amino Transferase (AST) 16 U/L (15-37) Alanine Aminotransferase (ALT) 26 U/L (16-63) Alkaline Phosphatase 111 U/L (46-116) Creatine Kinase 58 U/L (39-308) Creatine Kinase MB (Mass) 0.8 ng/mL (0.0-3.6) Creatine Kinase MB Relative Index % (0-4) Troponin I Quantitative < 0.017 ng/mL (0.000-0.055) EN-Fun-S-Type Natriuretic Peptide 18 pg/mL (0-124) Total Protein 7.3 g/dL (6.4-8.2) Albumin 3.8 g/dL (3.4-5.0) Albumin/Globulin Ratio 1.1 (1.0-1.7) Salicylates Level < 2.8 mg/dL (2.8-20.0) L Salicylate Last Dose Date Unk Salicylate Last Dose Time Unk Acetaminophen Level < 2.0 mcg/ml (10-30) L Acetaminophen Last Dose Date Unk Acetaminophen Last Dose Time Unk Ethyl Alcohol Level < 10 mg/dL (0-10) Lactic Acid Level 2.0 mmol/L (0.4-2.0) Ammonia 15 mcmol/L (11-34) Glucose (Fingerstick) 131 mg/dL (70-99) H Laboratory Tests 09/05/18 17:52 Laboratory Tests 09/05/18 17:52 EKG EKG @ 1752 Sinus tachycardia at 105bpm, NO ST elevation Radiology/Procedures Radiology/Procedures PROCEDURE: CT HEAD WO CONTRAST EXAM: CT HEAD WITHOUT CONTRAST. HISTORY: Altered mental status. TECHNIQUE: Computed tomography of the head was performed without intravenous contrast. COMPARISON: None. FINDINGS: There is no intracranial hemorrhage. Hypoattenuation within the periventricular white matter indicates mild chronic microangiopathic change. The ventricles are normal in size and position. There is a small mucus retention cyst in the right ethmoid air cells. The orbits are unremarkable. There is a small amount of fluid in the right mastoid air cells. The calvarium reveals no suspicious lesions. IMPRESSION: 1. No acute intracranial findings. 2. Mild chronic microangiopathic white matter change. *One or more of the following individualized dose reduction techniques were utilized for this examination: 1. Automated exposure control. 2. Adjustment of the mA and/or kV according to patient size. 3. Use of iterative reconstruction technique. Electronically signed by: Zay Dominguez MD (09/05/2018 7:17 PM) [facility] PROCEDURE: CHEST PA & LATERAL EXAM: CHEST 2 VIEWS. HISTORY: Altered mental status. COMPARISON: 09/02/2018. FINDINGS: Frontal and lateral views of the chest are obtained. Atelectasis in the left base is unchanged. There is mild elevation of the left hemidiaphragm and a small left pleural effusion. Left rib fractures are again noted. There is a small amount of gas in the left chest wall. There is no appreciable pneumothorax. The heart is not enlarged. There are atherosclerotic calcifications of the aorta. There are calcified granulomas on the left. IMPRESSION: 1. Small left pleural effusion. Left basilar atelectasis. Displaced left rib fractures. Electronically signed by: Zay Dominguez MD (09/05/2018 7:15 PM) [facility] Course & Med Decision Making Course & Med Decision Making Pertinent Labs and Imaging studies reviewed. (See chart for details) Patient presents with his daughter with report of altered mental status and visual hallucinations which is been ongoing since patient underwent recent left- sided lobectomy due to lung cancer. Apparently patient has had similar experiences secondary to hospitalization and possibly medications. Patient was advised to present to the ER to look for other medical reasons for altered mental status and hallucinations. Patient neurologically intact. NIHSS 0. CT head without acute process. Chest x-ray stable. EKG also stable. Labs obtained and posted to chart. WBC lightly elevated. Lactic acid within normal limits. Ammonia level also within normal limits. UA appears with some contamination without consistent signs of infection. Clinical opinion that patient would requiring admission for further evaluation and treatment. Discussed plan and findings the patient and family, who acknowledge understanding and agreement. Discussed with Dr. Hurst (hospitalist) who is in agreement with admission. Admission orders placed. Discussed with daughter regarding plan for further evaluation of medical conditions causing the altered mental status and hallucinations, but may also require psychiatric evaluation of no medical etiology appreciated. Daughter unhappy with this thought process and subsequently discussed with patient that he had ONLY presented to the ED for evaluation for low O2 sat and for possible infectious process as directed by Dr. Hurst. Daughter reports she thinks it is because he was admitted to hospital and may be secondary to his medications. Discussed that is definitely on the differential and would be further explored upon admission to the hospital. Daughter still unhappy and wants to take patient home and will follow closely with Dr. Silver. Patient in agreement with this plan. Patient and daughter advised he would be discharged against medical advise and discussed they would need to accept risks of leaving against medical advise including permanent disability and/or . Patient and family also advised some insurance companies may make patient pay for ED visit costs out of pocket if patient leaves against medical advise. Patient and family acknowledge understanding and willingness to accept these risks of leaving against medical advice. Dragon Disclaimer Dragon Disclaimer This electronic medical record was generated, in whole or in part, using a voice recognition dictation system. Departure Departure Impression: Primary Impression: Altered mental status Additional Impressions: Visual hallucinations Left against medical advice Disposition: AGAINST MEDICAL ADVICE Admitting Physician: Sundeep Hurst Condition: STABLE Referrals: THEODORE SILVER MD (PCP) Patient Instructions: Altered Mental Status, Discharge Against Medical Advice, Hallucinations and Delusions NIHSS Stroke Scale NIH Stroke Scale: NIH Stroke Scale Response (Comments) Value Level of Consciousness: 0 Alert/Responsive 0 LOC Questions: 0 Answers both correctly 0 LOC Commands: 0 Performs both tasks 0 Best Gaze: 0 Normal 0 Visual: 0 No visual loss 0 Facial Palsy: 0 Normal, symmetrical 0 Motor - Left Arm 0 No drift 0 Motor - Right Arm 0 No drift 0 Motor - Left Leg 0 No drift 0 Motor: Right Leg 0 No drift 0 Limb Ataxia: 0 Absent 0 Sensory: 0 No loss 0 Best Language: 0 Normal 0 Dysathria: 0 Normal 0 Extinction and Inattention: 0 Normal 0 Total 0 Problem Qualifiers Primary Impression: Altered mental status Altered mental status type: unspecified Qualified Codes: R41.82 - Altered mental status, unspecified SUNDEEP COLLADO DO Sep 05, 2018 20:05
[2018-09-05 20:07] LABS: BILIRUBIN,URINE SMALL (NEG); CLARITY,URINE CLEAR; COLOR,URINE AMBER; NITRITE,URINE NEGATIVE (NEG); PH,URINE 5.5; PROTEIN,URINE NEGATIVE (NEG-TRACE)
[2018-09-05 20:14] LABS: AMPHETAMINE/METHAMPHETAMINE NEG (NEG); BARBITURATES NEG (NEG); BENZODIAZEPINES NEG (NEG); CANNABINOIDS NEG (NEG); COCAINE NEG (NEG); METHADONE NEG (NEG); OPIATES NEG (NEG); PHENCYCLIDINE NEG (NEG)
[2018-09-05 20:47] LABS: AMORPHOUS SEDIMENT,UR PRESENT /HPF; BACTERIA,URINE FEW /HPF (0-FEW); SQUAMOUS EPITHELIAL CELL,UR FEW /LPF
[2018-09-05 20:50] VITALS: BP 116/74
[2018-09-06] MEDS ORDERED: INSULIN LISPRO 300 UNITS/3 ML INSULN.PEN. SQ SCH (08:00)
--- NOTE | 2018-09-07 07:59 | EKG ---
[facility] [address] [place] [address] Test Date: 2018-09-05 Test Time: 17:52:48 Pat Name: DWAYNE MAGANA Department: Room: Gender: M Manager Bank: : [id number] Requested By: JOLENE COLLADO Order Number: [id number] Reading MD: Measurements Intervals Minetto Rate: 105 P: -52 ID: [id number] QRS: -24 QRSD: 94 T: 19 QT: 344 QTc: 458 Interpretive Statements SINUS TACHYCARDIA LEFTWARD AXIS QRS(T) CONTOUR ABNORMALITY CONSISTENT WITH INFERIOR INFARCT AGE UNDETERMINED ABNORMAL ECG No previous ECG available for comparison
== END 2018-09-05 20:55 | disposition left against medical advice (07) ==
LOC: ER 17:42 → 6 SOUTH 19:40 → UNDOADMIN 19:40 → ER 20:55
DX: S22.42XA Multiple fractures of ribs, left side, initial encounter for closed fracture (principal); R41.82 Altered mental status, unspecified; R44.1 Visual hallucinations; J98.11 Atelectasis; I10 Essential (primary) hypertension; R00.0 Tachycardia, unspecified; F41.9 Anxiety disorder, unspecified; J90 Pleural effusion, not elsewhere classified; I70.0 Atherosclerosis of aorta; I25.2 Old myocardial infarction; I25.10 Atherosclerotic heart disease of native coronary artery without angina pectoris; E11.40 Type 2 diabetes mellitus with diabetic neuropathy, unspecified; F17.210 Nicotine dependence, cigarettes, uncomplicated; Z90.89 Acquired absence of other organs; Z90.49 Acquired absence of other specified parts of digestive tract; Z91.030 Bee allergy status; Z88.8 Allergy status to other drugs, medicaments and biological substances; X58.XXXA Exposure to other specified factors, initial encounter; Y93.89 Activity, other specified; Y92.89 Other specified places as the place of occurrence of the external cause; Y99.8 Other external cause status
CPT/HCPCS: 36415; 70450; 71046; 80053; 80307; 80329; 81001; 82140; 82553; 82962; 83605; 83735; 83880; 84484; 85025; 85610; 85730; 93005; 96360; 99285; G0480; J7030

== ENCOUNTER → 2018-09-28 | Outpatient (CLI) | payer MEDICARE ==
[2018-09-05 20:50] VITALS: BP 116/74
--- NOTE | 2018-09-28 16:31 | RAD ---
PA and lateral chest. HISTORY: Post lobectomy PA and lateral views were taken of the chest. Patient's had a left upper lobectomy. There is scarring and pleural thickening on the left. There are no new infiltrates. Heart is normal in size. There is no pleural effusion. There is a left rib fracture with little change. IMPRESSION: 1. Postop changes from a left lobectomy. 2. Mild scarring in the left lung base. 3. No pleural effusion or new infiltrate. Electronically signed by: Avelino Patino MD (09/28/2018 4:28 PM) [facility]
== END | disposition home or self-care (01) ==
LOC: RAD 13:39
PROVIDERS: ATTEND Thoracic Surgery (Cardiothoracic Vascular Surgery)
DX: S22.32XA Fracture of one rib, left side, initial encounter for closed fracture (principal); J98.4 Other disorders of lung; Z90.2 Acquired absence of lung [part of]; X58.XXXA Exposure to other specified factors, initial encounter; Y93.89 Activity, other specified; Y92.89 Other specified places as the place of occurrence of the external cause; Y99.8 Other external cause status
CPT/HCPCS: 71046

== ENCOUNTER → 2018-09-30 | Outpatient (CLI) | payer MEDICARE ==
[2018-09-05 20:50] VITALS: BP 116/74
[~2018-09-30] MED LIST changes: +GADOTERATE 7.5 MMOL/15ML VIAL. IVP ONE
--- NOTE | 2018-09-30 14:15 | KCIC ---
MRI Brain with and without contrast History: Lung cancer, altered mental status Technique: Multiplanar, multi sequential pre and postcontrast MR imaging was performed of the brain. Comparison: None Findings: There is no evidence of recent infarct or cytotoxic edema. Ventricular size is within normal limits. There is [id number] supratentorial atrophy more greatly affecting parietal lobes. There is no significant midline shift, intraaxial mass effect, or focal abnormal extra-axial fluid collection. There is minimal T2 and FLAIR hyperintense abnormality of the supratentorial periventricular white matter bilaterally, also very minimal T2 and FLAIR hyperintense signal abnormality of the periatrial white matter. 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 There is no nodular parenchymal or leptomeningeal enhancement. There is preservation of the major intracranial flow-voids at the skull base. The cerebellar tonsils are normal in location. There is no significant abnormality of the pineal gland or pituitary gland. There is very minimal patchy ethmoid air cell and frontal sinus mucosal thickening. There is mild patchy fluid and thickening mastoid air cells greater on the left. There is nonspecific mild heterogeneity of the marrow of the clivus, no focal or expansile lesion identified. Impression: 1. No abnormal intracranial enhancement is identified. There is supratentorial atrophy greater of the parietal lobes. Minimal T2 and FLAIR hyperintense signal abnormality of the supratentorial parenchyma bilaterally is nonspecific although more commonly due to chronic microvascular ischemic disease in a patient this age. Electronically signed by: Alfred Rueda MD (09/30/2018 2:12 PM) [id number]
== END | disposition home or self-care (01) ==
LOC: KCIC MRI 12:45
PROVIDERS: ATTEND Family Medicine
DX: G31.89 Other specified degenerative diseases of nervous system (principal); G93.0 Cerebral cysts; J34.89 Other specified disorders of nose and nasal sinuses; R90.82 White matter disease, unspecified; I10 Essential (primary) hypertension; Z87.891 Personal history of nicotine dependence
CPT/HCPCS: 70553; A9575

== ENCOUNTER → 2020-01-03 | Outpatient (CLI) | payer MEDICARE ==
[~2020-01-03] MED LIST changes: -DICL100G18 TP; +DICL100G54 TP; -GADOTERATE 7.5 MMOL/15ML VIAL. IVP ONE
--- NOTE | 2020-01-03 10:54 | RAD ---
CT CHEST WO CONTRAST Indication: Lung cancer, shortness of air Technique: Noncontrast CT imaging was performed of the chest, multiplanar reconstruction images submitted. One or more of the following individualized dose reduction techniques were utilized for this examination: 1. Automated exposure control 2. Adjustment of the mA and/or kV according to patient size 3. Use of iterative reconstruction technique. Comparison: July 15, 2018 Findings: There has been interval left upper lobectomy. There are some small calcified lung nodules bilaterally, no new suspicious noncalcified lung nodularity. Tiny 0.3 cm noncalcified right middle lobe nodule image 35 series 2 is stable. Right upper lobe nodule about 0.4 cm coronal image 40 series 5 is stable. There is no pleural or pericardial fluid, infiltrate, or pneumothorax. There is coronary calcification. There is again some calcified subcarinal nodes, no new significant chest lymphadenopathy. 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 Aortic root measures about 4.1 cm also similar. 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 There is no new abnormality of the thyroid gland. There is hepatic steatosis. There is again laxity of the ventral superior abdominal fascia and possible adjacent ventral hernia although not fully included. No new focal bone lesion is identified by CT. IMPRESSION: 1. There has been interval left upper lobectomy. There is no CT evidence of new metastatic disease to the chest. 2. There is again dilatation of the thoracic aorta as described. 3. There is coronary calcification. 4. There is hepatic steatosis. Electronically signed by: Alfred Rueda MD (01/03/2020 10:52 AM) [facility]
== END ==
LOC: CT 09:54
PROVIDERS: ATTEND Internal Medicine Critical Care Medicine
DX: C34.90 Malignant neoplasm of unspecified part of unspecified bronchus or lung (principal); R91.8 Other nonspecific abnormal finding of lung field; K43.9 Ventral hernia without obstruction or gangrene; K76.0 Fatty (change of) liver, not elsewhere classified; I25.10 Atherosclerotic heart disease of native coronary artery without angina pectoris; Z90.2 Acquired absence of lung [part of]
CPT/HCPCS: 71250